=== PATIENT | male | born 1955 | race Caucasian/White ===

== ENCOUNTER 2020-09-29 13:00 | Outpatient (RCR) | payer OTHER, SELFPAY ==
[2020-09-22 10:29] VITALS: BP 145/65; PULSE 91; RESP 16; TEMP 36.3; BMI 29.3
[2020-09-22 12:06] VITALS: BP 145/68
--- NOTE | 2020-09-22 22:28 | PCM.WC.HP ---
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 Status: Chronic Code(s): L97.513 - Non-pressure chronic ulcer of other part of right foot with necrosis of muscle (2) Other specified peripheral vascular diseases Status: Suspected Code(s): I73.89 - Other specified peripheral vascular diseases (3) Tobacco abuse Status: Acute Code(s): Z72.0 - Tobacco use (4) Hallux valgus (acquired), right foot Status: Chronic Code(s): M20.11 - Hallux valgus (acquired), right foot (5) Type 2 diabetes mellitus with diabetic polyneuropathy Status: Chronic Code(s): E11.42 - Type 2 diabetes mellitus with diabetic polyneuropathy (6) Malnutrition Status: Chronic Code(s): E46 - Unspecified protein-calorie malnutrition History of Present Illness Date of Service: 09/22/20 Chief Complaint: Right foot ulcer History of Wound: This 63-year-old male was seen in the clinic with his family member for a 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 He was initially treated with Dr. Kenyon at [facility] who performed a surgical debridement. He was referred to the wound healing center for ongoing wound care and potential graft consideration. He denies odor and relates there is no redness. He relates he is on antibiotics had x-rays performed and he is not sure if he was evaluated by vascular. He denies recent trauma. He has been changing the dressing. He continues to smoke up to 2 packs of cigarettes per day. He is wearing a surgical shoe. 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 (Chronic) Hallux valgus (acquired), right foot (Chronic) Type 2 diabetes mellitus with diabetic polyneuropathy (Chronic) Malnutrition (Chronic) Allergies/Adverse Reactions: Allergies No Known Allergies Allergy (Verified 09/22/20 11:02) Home Medications: Ambulatory Orders Medication Instructions Recorded Doxycycline 100 mg PO BID 09/22/20 Levofloxacin [Levaquin] 500 mg PO DAILY 09/22/20 Smoking Status: Current every day smoker Review of Systems Constitutional: Denies: Chills, Fever Cardiovascular: Denies: Chest Pain, Claudication Respiratory: Denies: Cough, Shortness of Breath Gastrointestinal: Denies: Diarrhea, Nausea, Vomiting Musculoskeletal: Reports: Foot Pain - Occasional Skin: Reports: Skin Changes, Wounds Neurological: Reports: Numbness Hematologic/ Lymphatic: Denies: Hx of blood clot - Physical Exam Vital Signs Temp Pulse Resp BP 97.3 F L 91 16 145/68 H 09/22/20 10:29 09/22/20 10:29 09/22/20 10:29 09/22/20 12:06 General: Alert HEENT: Atraumatic Extremities: No cyanosis, Capillary Refill Less than 3 Seconds, No Calf Tenderness - Negative Anirudh and Bell sign bilateral, Diminished Peripheral Pulses - Nonpalpable DP and PT pulses bilateral, Edema, - - Compartments soft without bogginess or fluctuance bilateral lower extremities Skin: Ulcer/ Wound - No purulence, erythema, streaking, odor, necrosis. No exposed bone. The ulcer has granulation tissue and does probe deep to the sesamoid apparatus. Capsular tissue was exposed., - - Adjacent skin is hairless and atrophic Wound Measurements and Assessment WC - Nurse 1 - General Ulcer Measurement Start: 09/22/20 10:29 Freq: Status: Active Protocol: Activity Type Activity Date Activity User E-Sign Co-Sign Detail Recorded Client Recorded Date Recorded By Document 09/22/20 10:29 [facility] [id number] 09/22/20 11:02 [facility] 09/22/20 10:29 Wound Center Nurse 1 [Ulcer Assessment] #1- R MEDIAL FOOT -Combined with other wound No -Current Size (cm) - Length 5 -Current Size (cm) - Width 3.3 -Current Size (cm) - Depth 1.1 -Total Square Cm 16.5 -Date of Last Picture (Recall this 09/22/20 field) -Photo Taken Yes -Epithelialization None Present -Tunneling Yes -Tunneling Position (O'clock) 6 -Tunneling Distance (cm) 2.5 -Undermining/Tunneling No -Circular Undermining No -Exudate Amt Medium -Exudate Type Serosanguineous -Wound Margin Distinct, Outline Attached -Granulation Amt Small (1-33%) -Granulation Quality Red -Slough/Fibrin Yes -Necrosis Amt Large (67-100%) -Necrotic Tissue Type Adherent Slough -Texture (Bety-wound Skin Appearance) Assessed, Localized Edema ,Scarring -Moisture (Bety-wound Skin Appearance Assessed ) -Color (Bety-wound Skin Appearance) Assessed, Erythema -Temperature (Bety-wound Skin No Abnormality Appearance) (Pt Warm) -Tenderness on Palpation (Bety-wound No Skin Appearance) -Ulcer Cleansing SOAPY WATER -Foul Odor after Cleansing No -Anesthetic Used 4% Lidocaine Solution [Edema Assessment] -Right Calf (cm) 38.5 -Right Ankle (cm) 24.1 -Left Calf (cm) 40.3 -Left Ankle (cm) 24.6 WC - Nurse 2 - General Ulcer CM Notes Start: 09/22/20 10:29 Freq: Status: Active Protocol: Activity Type Activity Date Activity User E-Sign Co-Sign Detail Recorded Client Recorded Date Recorded By Document 09/22/20 11:36 [facility] [id number] 09/22/20 11:43 CESAR 09/22/20 11:36 Wound Center Nurse 2 [Procedure/Treatment] #1- R MEDIAL FOOT -Correct Patient Yes -Correct Side, Site, Position Yes -Correct Procedure Yes -Procedure Performed Yes -Type of Procedure Debridement -Clinical Debridement Subcutaneous -Tissue Removed Subcutaneous -Post Debridement (cm) - Length 5.5 -Post Debridement (cm) - Width 3.5 -Post Debridement (cm) - Depth 1.1 -Total Square (Post) (cm) 19.25 -Area of Debridement (cm) - Length 5.5 -Area of Debridement (cm) - Width 3.5 -Total Square (Area) (cm) 19.25 -Tunneling No -Undermining/Tunneling No -Circular Undermining No -Wound/Ulcer Outcome Not Healed -Ulcer Cleansing Rinsed/ Irrigated with Saline -Foul Odor after Cleansing No -Bioengineered Tissue No -Bleeding Controlled with Pressure -Offloading Yes -Type of Offloading Surgical Shoe -Debridement - Subq, 1st 20sq cm Yes [See Physician Procedure note for Specifics] Pain Scale: 0-10 Numeric [Pain] -Is Patient Pain Free? Yes - Nurse 3 - General Ulcer D/C NN Start: 09/22/20 10:29 Freq: Status: Active Protocol: Activity Type Activity Date Activity User E-Sign Co-Sign Detail Recorded Client Recorded Date Recorded By Document 09/22/20 12:06 RB [id number] 09/22/20 12:07 RB 09/22/20 12:06 Wound Care Nurse 3 [Wound Dressing] #1- R MEDIAL FOOT -Other Dressing MOISTENED SALINE GAUZE -Primary Dressing Covered/Secured Dry Gauze,Dry with Gauze & Roll Gauze,Secured with Tape [Post Procedure Tolerated] -Treatment Response Procedure Tolerated Well Vital Signs [Blood Pressure] -Blood Pressure (90/60-120/80) 145/68 H -Blood Pressure Mean (mm Hg) 93 -Source Monitor -Position Semi-Fowlers -Blood Pressure Location Left Arm Pain Scale: 0-10 Numeric [Pain] -Is Patient Pain Free? Yes Teaching: Wound Center [Wound Center Education] (Items with an * have Printed Materials Available- Please identify what is given to patient under the Teaching materials given to patient and caregiver Section. Dressing Your Wound -Person Taught Patient -Teaching Method Discussion, Demonstration -Response to teaching Verbalize understanding WC - Visit Discharge [Visit Discharge Information] -Discharge Condition Stable -Ambulatory Status Ambulatory -Transportation Private Auto -Medication Reconcilliation completed No & provided to patient/care provider -Clinical Summary of Care Provided Yes Musculoskeletal: Muscle Wasting, Tenderness - Active range of motion digits. Mild tenderness with ulcerative lesion. Mild lateral hallux deviation consistent with a bunion deformity Neurological: - - Lack of full epicritic sensation light touch is consistent with neuropathy status Debridement Note Post-Debridement Measurements/Treatment WC - Nurse 2 - General Ulcer CM Notes Start: 09/22/20 10:29 Freq: Status: Active Protocol: Activity Type Activity Date Activity User E-Sign Co-Sign Detail Recorded Client Recorded Date Recorded By Document 09/22/20 11:36 [facility] [id number] 09/22/20 11:43 CESAR 09/22/20 11:36 Wound Center Nurse 2 #1- R MEDIAL FOOT -Correct Patient Yes -Correct Side, Site, Position Yes -Correct Procedure Yes -Procedure Performed Yes -Type of Procedure Debridement -Clinical Debridement Subcutaneous -Tissue Removed Subcutaneous -Post Debridement (cm) - Length 5.5 -Post Debridement (cm) - Width 3.5 -Post Debridement (cm) - Depth 1.1 -Total Square (Post) (cm) 19.25 -Area of Debridement (cm) - Length 5.5 -Area of Debridement (cm) - Width 3.5 -Total Square (Area) (cm) 19.25 -Tunneling No -Undermining/Tunneling No -Circular Undermining No -Wound/Ulcer Outcome Not Healed -Ulcer Cleansing Rinsed/ Irrigated with Saline -Foul Odor after Cleansing No -Bioengineered Tissue No -Bleeding Controlled with Pressure -Offloading Yes -Type of Offloading Surgical Shoe -Debridement - Subq, 1st 20sq cm Yes Pain Scale: 0-10 Numeric Is Patient Pain Free? Yes - Nurse 3 - General Ulcer D/C NN Start: 09/22/20 10:29 Freq: Status: Active Protocol: Activity Type Activity Date Activity User E-Sign Co-Sign Detail Recorded Client Recorded Date Recorded By Document 09/22/20 12:06 [id number] 09/22/20 12:07 RB 09/22/20 12:06 Wound Care Nurse 3 #1- R MEDIAL FOOT -Other Dressing MOISTENED SALINE GAUZE -Primary Dressing Covered/Secured with Dry Gauze,Dry Gauze & Roll Gauze,Secured with Tape Treatment Response Procedure Tolerated Well Vital Signs Blood Pressure (90/60-120/80) 145/68 H Blood Pressure Mean (mm Hg) 93 Source Monitor Position Semi-Fowlers Blood Pressure Location Left Arm Pain Scale: 0-10 Numeric Is Patient Pain Free? Yes Teaching: Wound Center Dressing Your Wound -Person Taught Patient -Teaching Method Discussion, Demonstration -Response to teaching Verbalize understanding WC - Visit Discharge Discharge Condition Stable Ambulatory Status Ambulatory Transportation Private Auto Medication Reconcilliation completed & No provided to patient/care provider Clinical Summary of Care Provided Yes Wound debrided: medial forefoot Laterality: Right Wound Grade/Stage: grade 2 Type of Debridement: Excisional debridement Anesthesia Used: 5% Lidocaine Gel Depth: in the subcutaneous layer Percentage of wound debrided: 100 Instrument Used: #15 blade Tissue Removed: fibrous, devitalized subcutaneous, biofilm, slough Severity: Fat Layer Exposed Amount of bleeding with debridement: Mild Bleeding Controlled with: Pressure Patient tolerated procedure well Assessment/Plan Active Problems 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 Infection resolving. Strong smoking habits. Peripheral vascular disease concern. Malnutrition suspected Plan: I reviewed and discussed his case. Debridement was performed as noted in the clinical panel. I will request many records from [facility]. I would like to obtain the following diagnostic data for ordered if I cannot receive this information from the outside facility: Foot x-ray or other advanced imaging, current antibiotic usage, noninvasive vascular disks studies or other intervention, prior medical and surgical management. To continue offloading with surgical shoe that he presents with today by heel weightbearing. I also added a foam offloading pad to reduce friction and pressure at this site. To optimize nutrition with Jordan supplementations. A prescription was provided. To clean ulcer daily with soap and water and to perform a wet-to-dry dressing with Dakin's. A prescription was provided. To discontinue smoking. This is imperative for healing opportunities. Is noted he is not a diabetic. I would like to request his medical records from his primary care physician to better understand his other medical management opportunities. Progress of the ulcer debridement was reviewed as was the components of a comprehensive wound healing plan. Answered all his questions. He will return to clinic in 1 week or call sooner if he has any questions or concerns. I would also like to consider advancement healing product such as epicord or epifix. Indications, benefits, anticipated healing time and management reviewed. This would be considered if the wound is open for 1 month in duration and after insurance prior authorization is completed.
[2020-09-29 13:01] VITALS: BP 147/72; PULSE 94; RESP 20; TEMP 36.3; BMI 29.3
--- NOTE | 2020-09-29 14:31 | PCM.WC.PN ---
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 Status: Chronic Code(s): L97.513 - Non-pressure chronic ulcer of other part of right foot with necrosis of muscle (2) Other specified peripheral vascular diseases Status: Suspected Code(s): I73.89 - Other specified peripheral vascular diseases (3) Tobacco abuse Status: Acute Code(s): Z72.0 - Tobacco use (4) Hallux valgus (acquired), right foot Status: Chronic Code(s): M20.11 - Hallux valgus (acquired), right foot (5) Type 2 diabetes mellitus with diabetic polyneuropathy Status: Chronic Code(s): E11.42 - Type 2 diabetes mellitus with diabetic polyneuropathy (6) Malnutrition Status: Chronic Code(s): E46 - Unspecified protein-calorie malnutrition Type of Wound Date of Service: 09/29/20 Chief Complaint: Right foot ulcer History of Wound: This 63-year-old male was seen in the clinic with his family member for a 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 He was initially treated with Dr. Kenyon at [facility] who performed a surgical debridement on 09/06/2020. He was referred to the wound healing center for ongoing wound care and potential graft consideration. He denies odor and relates there is no redness. He relates he is on antibiotics had x-rays performed and he is not sure if he was evaluated by vascular. He does however report he was seen by Dr. Raul Wong several years ago in which he had arterial surgical intervention for traumatic injury. He relates he has stents placed and is advised not to bend his leg too aggressively. He denies claudication he also denies recent noninvasive vascular studies. He is wearing a surgical shoe. He reduce smoking to about 1 pack/day this past week. He has been changing the dressing with Dakin wet-to-dry as advised. Progress of Wound: Improving - Physical Exam Vital Signs Temp Pulse Resp BP 97.4 F L 94 20 H 147/72 H 09/29/20 13:01 09/29/20 13:01 09/29/20 13:01 09/29/20 13:01 General: Alert, Oriented x3, Cooperative, No apparent distress HEENT: Atraumatic Extremities: No cyanosis, Capillary Refill Less than 3 Seconds, No Calf Tenderness, Diminished Peripheral Pulses, Edema Skin: Ulcer/ Wound - No purulence, erythema, streaking, odor, necrosis or infection. Exposed capsule tissue noted to medial first metatarsal head. Improvement in granulation tissue. The adjacent skin is hairless and atrophic. Wound Measurements and Assessment - Nurse 1 - General Ulcer Measurement Start: 09/22/20 10:29 Freq: Status: Active Protocol: Activity Type Activity Date Activity User E-Sign Co-Sign Detail Recorded Client Recorded Date Recorded By Document 09/29/20 13:01 [facility] [id number] 09/29/20 13:16 DL 09/29/20 13:01 Wound Center Nurse 1 [Ulcer Assessment] #1- R MEDIAL FOOT -Current Size (cm) - Length 4.5 -Current Size (cm) - Width 3.1 -Current Size (cm) - Depth 0.6 -Total Square Cm 13.95 -Photo Taken No -Exudate Amt Small -Exudate Type Serosanguineous -Wound Margin Thickened & Rolled Under -Granulation Amt Medium (34-66%) -Granulation Quality Red -Necrosis Amt Medium (34-66%) -Necrotic Tissue Type Adherent Slough -Structure Exposed N/A -Texture (Bety-wound Skin Appearance) Localized Edema ,Scarring -Moisture (Bety-wound Skin Appearance No Abnormality ) -Color (Bety-wound Skin Appearance) Erythema -Temperature (Bety-wound Skin No Abnormality Appearance) (Pt Warm) -Tenderness on Palpation (Bety-wound No Skin Appearance) -Ulcer Cleansing Wound Cleanser -Foul Odor after Cleansing No -Anesthetic Used 4% Lidocaine Solution - Nurse 2 - General Ulcer CM Notes Start: 09/22/20 10:29 Freq: Status: Active Protocol: Activity Type Activity Date Activity User E-Sign Co-Sign Detail Recorded Client Recorded Date Recorded By Document 09/29/20 13:23 [facility] [id number] 09/29/20 13:30 CESAR 09/29/20 13:23 Wound Center Nurse 2 [Procedure/Treatment] -Time 13:24 -Correct Patient Yes -Correct Side, Site, Position Yes -Correct Procedure Yes -Procedure Performed Yes -Type of Procedure Debridement -Clinical Debridement Subcutaneous -Tissue Removed Subcutaneous -Post Debridement (cm) - Length 4.5 -Post Debridement (cm) - Width 3.2 -Post Debridement (cm) - Depth 0.6 -Total Square (Post) (cm) 14.40 -Area of Debridement (cm) - Length 4.5 -Area of Debridement (cm) - Width 3.2 -Total Square (Area) (cm) 14.40 -Tunneling No -Undermining/Tunneling No -Circular Undermining No -Wound/Ulcer Outcome Not Healed -Ulcer Cleansing Rinsed/ Irrigated with Saline -Foul Odor after Cleansing No -Bioengineered Tissue No -Bleeding Controlled with Pressure -Offloading Yes -Type of Offloading Surgical Shoe -Treatment Response Procedure Tolerated Well -Debridement - Subq, 1st 20sq cm Yes [See Physician Procedure note for Specifics] Pain Scale: 0-10 Numeric [Pain] -Is Patient Pain Free? Yes - Nurse 3 - General Ulcer D/C NN Start: 09/22/20 10:29 Freq: Status: Active Protocol: Activity Type Activity Date Activity User E-Sign Co-Sign Detail Recorded Client Recorded Date Recorded By Document 09/29/20 13:47 [facility] [id number] 09/29/20 13:47 [facility] 09/29/20 13:47 Wound Care Nurse 3 [Wound Dressing] #1- R MEDIAL FOOT -Ulcer Cleansing Rinsed/ Irrigated with Saline -Foul Odor after Cleansing No -Primary Dressing Applied Other -Other Dressing moist to dry drsg -Primary Dressing Covered/Secured Dry Gauze & with Roll Gauze, Secured with Tape [Post Procedure Tolerated] -Treatment Response Procedure Tolerated Well Pain Scale: 0-10 Numeric [Pain] -Is Patient Pain Free? Yes - Visit Discharge [Visit Discharge Information] -Discharge Condition Stable -Ambulatory Status Ambulatory -Transportation Private Auto -Accompanied by niece [Facility Notification] -Facility Type Home Health Musculoskeletal: No Tenderness to Palpation of Joints or Extremities, Muscle Wasting, - - Compartments soft Neurological: - - Lack of full epicritic sensation light touch is consistent with neuropathy status Psych/Mental Status: Normal Affect, Appropriate Debridement Note Post-Debridement Measurements/Treatment - Nurse 2 - General Ulcer CM Notes Start: 09/22/20 10:29 Freq: Status: Active Protocol: Activity Type Activity Date Activity User E-Sign Co-Sign Detail Recorded Client Recorded Date Recorded By Document 09/22/20 11:36 [id number] 09/22/20 11:43 Document 09/29/20 13:23 [id number] 09/29/20 13:30 09/22/20 09/29/20 11:36 13:23 Wound Center Nurse 2 #1- R MEDIAL FOOT -Time 13:24 -Correct Patient Yes Yes -Correct Side, Site, Position Yes Yes -Correct Procedure Yes Yes -Procedure Performed Yes Yes -Type of Procedure Debridement Debridement -Clinical Debridement Subcutaneous Subcutaneous -Tissue Removed Subcutaneous Subcutaneous -Post Debridement (cm) - Length 5.5 4.5 -Post Debridement (cm) - Width 3.5 3.2 -Post Debridement (cm) - Depth 1.1 0.6 -Total Square (Post) (cm) 19.25 14.40 -Area of Debridement (cm) - Length 5.5 4.5 -Area of Debridement (cm) - Width 3.5 3.2 -Total Square (Area) (cm) 19.25 14.40 -Tunneling No No -Undermining/Tunneling No No -Circular Undermining No No -Wound/Ulcer Outcome Not Healed Not Healed -Ulcer Cleansing Rinsed/ Rinsed/ Irrigated with Irrigated with Saline Saline -Foul Odor after Cleansing No No -Bioengineered Tissue No No -Bleeding Controlled with Pressure Pressure -Offloading Yes Yes -Type of Offloading Surgical Shoe Surgical Shoe -Treatment Response Procedure Tolerated Well -Debridement - Subq, 1st 20sq cm Yes Yes Pain Scale: 0-10 Numeric Is Patient Pain Free? Yes Yes - Nurse 3 - General Ulcer D/C NN Start: 09/22/20 10:29 Freq: Status: Active Protocol: Activity Type Activity Date Activity User E-Sign Co-Sign Detail Recorded Client Recorded Date Recorded By Document 09/22/20 12:06 [id number] 09/22/20 12:07 RB Document 09/29/20 13:47 [facility] [id number] 09/29/20 13:47 [facility] 09/22/20 09/29/20 12:06 13:47 Wound Care Nurse 3 #1- R MEDIAL FOOT -Ulcer Cleansing Rinsed/ Irrigated with Saline -Foul Odor after Cleansing No -Primary Dressing Applied Other -Other Dressing MOISTENED moist to dry SALINE GAUZE drsg -Primary Dressing Covered/Secured with Dry Gauze,Dry Dry Gauze & Gauze & Roll Roll Gauze, Gauze,Secured Secured with with Tape Tape Treatment Response Procedure Procedure Tolerated Well Tolerated Well Vital Signs Blood Pressure (90/60-120/80) 145/68 H Blood Pressure Mean (mm Hg) 93 Source Monitor Position Semi-Fowlers Blood Pressure Location Left Arm Pain Scale: 0-10 Numeric Is Patient Pain Free? Yes Yes Teaching: Wound Center Dressing Your Wound -Person Taught Patient -Teaching Method Discussion, Demonstration -Response to teaching Verbalize understanding WC - Visit Discharge Discharge Condition Stable Stable Ambulatory Status Ambulatory Ambulatory Transportation Private Auto Private Auto Accompanied by niece Medication Reconcilliation completed & No provided to patient/care provider Clinical Summary of Care Provided Yes Facility Type Home Health Wound debrided: plantar medial forefoot Laterality: Right Wound Grade/Stage: grade 2 Type of Debridement: Excisional debridement Anesthesia Used: 5% Lidocaine Gel Depth: in the subcutaneous layer Percentage of wound debrided: 100 Instrument Used: #15 blade Tissue Removed: fibrous, devitalized subcutaneous, biofilm, slough Severity: Fat Layer Exposed Amount of bleeding with debridement: Mild Bleeding Controlled with: Pressure Patient tolerated procedure well Assessment/Plan Active Problems 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 Infection resolving. Strong smoking habits. Peripheral vascular disease concern. Malnutrition suspected Plan: I reviewed and discussed his case. Debridement was performed as noted in the clinical panel. I will request many records from [facility]. These were received and reviewed including admission note, operation report, and microbiology reports. It did not appear he had updated noninvasive vascular studies and this is ordered today. 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 I will also continue to try to obtain x-rays if these were done and any documentation of infection management or plan. The patient was reassured local signs of infection have resolved to the foot today. To continue offloading with surgical shoe. He has an offloading felt pad applied to the strap and additional dual density Plastizote liners were also applied to take pressure off of the forefoot. To heel weight-bear and to reduce walking activity. To optimize nutrition with Jordan supplementations. A prescription was provided. To clean ulcer daily with soap and water and to perform a wet-to-dry dressing with Dakin's. A prescription was provided. To discontinue smoking. This is imperative for healing opportunities. Is noted he is not a diabetic. Progress of the ulcer debridement was reviewed as was the components of a comprehensive wound healing plan. Answered all his questions. He will return to clinic in 1 week or call sooner if he has any questions or concerns. I would also like to consider advancement healing product such as epicord or epifix. Indications, benefits, anticipated healing time and management reviewed. This would be considered if the wound is open for 1 month in duration and after insurance prior authorization is completed.
== END 2020-09-30 23:59 ==
LOC: WC 13:00
PROVIDERS: PCP Preventive Medicine Occupational Medicine; Referring Provider Podiatrist Foot & Ankle Surgery; Visit Provider Nurse Practitioner
DX: E11.621 Type 2 diabetes mellitus with foot ulcer (principal); L97.513 Non-pressure chronic ulcer of other part of right foot with necrosis of muscle; E11.42 Type 2 diabetes mellitus with diabetic polyneuropathy; M20.11 Hallux valgus (acquired), right foot; F17.210 Nicotine dependence, cigarettes, uncomplicated
CPT/HCPCS: 11042; 99213; G0463

== ENCOUNTER → 2020-10-11 14:38 | Outpatient (CLI) | payer OTHER, SELFPAY ==
[2020-10-06 13:46] VITALS: BMI 29.3
--- NOTE | 2020-10-11 14:58 | RAD_ITS ---
STUDY: X-RAY - RIGHT FOOT CLINICAL: Male, 64 years old. right foot infection, ball of foot -- surgery on it 09-06-20 -- follow up TECHNIQUE: 3 view(s) of the foot. COMPARISON: None. FINDINGS: Normal talus, calcaneus, and tarsal bones. Small plantar posterior calcaneal enthesophytes. Calcifications of the proximal plantar fascia suggestive of plantar fasciitis. Normal visualized subtalar, talonavicular, calcaneocuboid, tarsal and tarsometatarsal articulations. Normal metatarsi. Normal metatarsophalangeal joint of the great toe. Normal tibial and fibular sesamoid bones. Normal interphalangeal joint of the great toe. Normal phalanges of the great toe. Normal second through fifth metatarsophalangeal joints. Normal interphalangeal joints and phalanges of the lesser toes. The soft tissue structures are unremarkable. RAD/Foot min 3 Views IMPRESSION: No radiographic evidence of osteomyelitis. Electronically Signed: Mario Romero MD at 15:40 EST Tel , Service support ,
[2020-10-11 16:46] LABS: Absolute Lymphocyte Count 1.52 X10^3/uL (0.83-4.51); Absolute Neutrophil Count 2.4 X10^3/uL (2.0-7.7); Basophil# 0.04 X10^3/uL; Basophil% 0.8 % (0-1); Eosinophil# 0.13 X10^3/uL; Eosinophils% 2.5 % (0-5); Hematocrit 52.4 % (40-54); Hemoglobin 17.2 g/dL (13.0-16.5); Lymphocyte # 1.52 X10^3/ul (4.0); Lymphocyte % 29.8 % (19-41); Mean Corp Hgb Conc 32.8 g/dL (32-36); Mean Corpuscular Hgb 30.7 pg (27.0-32.0); Mean Corpuscular Volume 93.4 fL (80-94); Mean Platelet Vol. 10.6 fl (6.2-12.0); Monocyte# 0.98 X10^3/uL; Monocyte% 19.2 % (0-10); NRBC Flagged by Analyzer 0 % (0-5); Neutrophil # 2.39 X10^3/uL (2.7-7.7); Neutrophil % 46.9 % (47-70); Platelet Count 161 K/mm3 (150-450); RBC Distribution Width CV 12.9 % (11.6-14.6); RBC Distribution Width SD 44.4 fl (35.1-43.9); Red Blood Count 5.61 M/mm3 (4.6-6.2); White Blood Count 5.1 K/mm3 (4.4-11.0)
[2020-10-11 17:02] LABS: Hemoglobin A1c 8.3 % (3.8-5.6)
[2020-10-11 17:12] LABS: ALB/GLOB Ratio 0.7 RATIO (0.9-2.4); AST(SGOT) 25 U/L (15-37); Alanine Aminotransfer ALT/SGPT 27 U/L (16-61); Alkaline Phosphatase 155 U/L (45-117); Anion Gap 6 (5-15); BUN 15 mg/dL (7-18); BUN/Creat Ratio 15.5 RATIO (10-20); Calcium,Total 8.8 mg/dL (8.5-10.1); Chloride 99 mmol/L (98-107); Creatinine, Serum 0.97 mg/dL (0.70-1.30); EST Glomerular Filtration Rate 83 mL/min (>60); Est Glom Filt Rate - Afr Amer 100 mL/min (>60); Globulin 4.2 g/dL (2.2-4.2); Glucose 266 mg/dL (74-106); Potassium 4.2 mmol/L (3.5-5.1); Protein, Total 7.2 g/dL (6.4-8.2); Sodium Level 135 mmol/L (136-145)
[2020-10-11 17:35] LABS: Erythrocyte Sedimentation Rate 14 mm/hr (0-20)
== END ==
PROVIDERS: PCP Preventive Medicine Occupational Medicine; Referring Provider Podiatrist; Visit Provider Podiatrist
DX: L03.115 Cellulitis of right lower limb (principal)
CPT/HCPCS: 36415; 73630; 80053; 83036; 85025; 85652; 86140

== ENCOUNTER 2020-10-27 10:30 | Outpatient (RCR) | payer OTHER, SELFPAY ==
[2020-10-01 00:41] VITALS: BP 147/72; PULSE 94; RESP 20; TEMP 36.3
[2020-10-06 13:46] VITALS: BP 159/80; PULSE 86; TEMP 35.8; BMI 29.3
--- NOTE | 2020-10-06 15:02 | PN.PCM_ITS ---
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 Status: Chronic Code(s): L97.513 - Non-pressure chronic ulcer of other part of right foot with necrosis of muscle (2) Tobacco abuse Status: Acute Code(s): Z72.0 - Tobacco use (3) Hallux valgus (acquired), right foot Status: Chronic Code(s): M20.11 - Hallux valgus (acquired), right foot (4) Type 2 diabetes mellitus with diabetic polyneuropathy Status: Chronic Code(s): E11.42 - Type 2 diabetes mellitus with diabetic polyneuropathy (5) Malnutrition Status: Chronic Code(s): E46 - Unspecified protein-calorie malnutrition (6) Cellulitis of right lower limb Status: Resolved Code(s): L03.115 - Cellulitis of right lower limb (7) Other specified peripheral vascular diseases Status: Chronic Code(s): I73.89 - Other specified peripheral vascular diseases Type of Wound Date of Service: 10/06/20 Chief Complaint: Right foot ulcer History of Wound: This 64-year-old male was seen in the clinic with his family member for a 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 He was initially treated with Dr. Kenyon at [facility] who performed a surgical debridement on 09/06/2020. He was referred to the wound healing center for ongoing wound care and potential graft consideration. He denies odor and relates there is no redness. He relates he is on antibiotics had x-rays performed and he is not sure if he was evaluated by vascular. He does however report he was seen by Dr. Raul Wong several years ago in which he had arterial surgical intervention for traumatic injury. He relates he has stents placed and is advised not to bend his leg too aggressively. He denies claudication he also denies recent noninvasive vascular studies. He is wearing a surgical shoe. He reduce smoking to about 1 pack/day this past week. He has been changing the dressing with Dakin wet-to-dry as advised. Progress of Wound: Improving - Physical Exam Vital Signs Temp Pulse Resp BP 96.5 F L 86 20 H 159/80 H 10/06/20 13:46 10/06/20 13:46 10/01/20 00:41 10/06/20 13:46 General: Alert, Oriented x3, Cooperative, No apparent distress Extremities: No cyanosis, Capillary Refill Less than 3 Seconds, No Calf Tenderness, Diminished Peripheral Pulses, Edema Skin: Ulcer/ Wound - No purulence on expression. No erythema, no streaking, no necrosis. The adjacent skin is hairless and atrophic. There is continued deep probing of over a couple of centimeters to the 8 o'clock position. Exposed capsule of the first metatarsal head is noted medially which is close to bone Wound Measurements and Assessment WC - Nurse 1 - General Ulcer Measurement Start: 10/06/20 13:35 Freq: Status: Active Protocol: Activity Type Activity Date Activity User E-Sign Co-Sign Detail Recorded Client Recorded Date Recorded By Document 10/06/20 13:46 MT [id number] 10/06/20 13:51 MT 10/06/20 13:46 Wound Center Nurse 1 [Ulcer Assessment] #1- R MEDIAL FOOT -Current Size (cm) - Length 3.5 -Current Size (cm) - Width 5.2 -Current Size (cm) - Depth 0.2 -Total Square Cm 18.20 -Exudate Amt None Present -Wound Margin Distinct, Outline Attached -Granulation Amt Large (67-100%) -Granulation Quality Red -Necrosis Amt Small (1-33%) -Necrotic Tissue Type Adherent Slough -Texture (Bety-wound Skin Appearance) Assessed,Callus -Moisture (Bety-wound Skin Appearance Assessed,Dry/ ) Scaly -Color (Bety-wound Skin Appearance) Assessed, Hemosiderin Staining -Temperature (Bety-wound Skin No Abnormality Appearance) (Pt Warm) -Tenderness on Palpation (Bety-wound No Skin Appearance) -Ulcer Cleansing Rinsed/ Irrigated with Saline -Foul Odor after Cleansing No -Anesthetic Used 4% Lidocaine Solution WC - Nurse 3 - General Ulcer D/C NN Start: 10/06/20 13:35 Freq: Status: Active Protocol: Activity Type Activity Date Activity User E-Sign Co-Sign Detail Recorded Client Recorded Date Recorded By Document 10/06/20 14:24 KR [id number] 10/06/20 14:25 KR 10/06/20 14:24 Wound Care Nurse 3 [Wound Dressing] -Ulcer Cleansing Rinsed/ Irrigated with Saline -Foul Odor after Cleansing No -Primary Dressing Covered/Secured Dry Gauze & with Roll Gauze, Secured with Tape Pain Scale: 0-10 Numeric [Pain] -Is Patient Pain Free? Yes WC - Visit Discharge [Visit Discharge Information] -Discharge Condition Stable -Ambulatory Status Ambulatory -Transportation Private Auto Musculoskeletal: Muscle Wasting, - - Lateral hallux deviation with prominent first metatarsal head. Compartments are soft. No bogginess or fluctuance on palpation Neurological: - - Lack of normal epicritic sensation is consistent with a neuropathy status. Debridement Note Post-Debridement Measurements/Treatment WC - Nurse 3 - General Ulcer D/C NN Start: 10/06/20 13:35 Freq: Status: Active Protocol: Activity Type Activity Date Activity User E-Sign Co-Sign Detail Recorded Client Recorded Date Recorded By Document 10/06/20 14:24 KOJO [id number] 10/06/20 14:25 KOJO 10/06/20 14:24 Wound Care Nurse 3 #1- R MEDIAL FOOT -Ulcer Cleansing Rinsed/ Irrigated with Saline -Foul Odor after Cleansing No -Primary Dressing Covered/Secured with Dry Gauze & Roll Gauze, Secured with Tape Pain Scale: 0-10 Numeric Is Patient Pain Free? Yes WC - Visit Discharge Discharge Condition Stable Ambulatory Status Ambulatory Transportation Private Auto Wound debrided: plantar medial forefoot Laterality: Right Wound Grade/Stage: grade 2 Type of Debridement: Excisional debridement Anesthesia Used: 5% Lidocaine Gel Depth: in the subcutaneous layer Percentage of wound debrided: 100 Instrument Used: 3mm curette, #15 blade Tissue Removed: fibrous, devitalized subcutaneous, biofilm, slough Severity: Fat Layer Exposed Amount of bleeding with debridement: Mild Bleeding Controlled with: Pressure Patient tolerated procedure well Assessment/Plan Active Problems 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 Diabetes with neuropathy. Infection resolving. Strong smoking habits. Peripheral vascular disease concern. Malnutrition suspected Plan: I reviewed and discussed his case. Debridement was performed as noted in the clinical panel. I will request many records from [facility]. These were received and reviewed including admission note, operation report, an d microbiology reports. It did not appear he had updated noninvasive vascular studies and was ordered previously. His microbiology report was reviewed and this demonstrates Group D enterococcus, gram-negative rods and gram positive rods. I have performed an additional medical record review at [facility] and there does not appear to be any imaging studies on file. An x-ray of the foot was ordered. He understands he may require MRI evaluation also. The patient was reassured local signs of infection have resolved to the foot today. It is noted he completed a course of antibiotics under the management of Dr. Kenyon. I also recommend updated labs to monitor his continued medical status and infection markers. To continue offloading with surgical shoe. He has an offloading felt pad applied to the strap and additional dual density Plastizote liners were also applied to take pressure off of the forefoot. To heel weight-bear and to reduce walking activity. To optimize nutrition with Jordan supplementations. A prescription was provided. To clean ulcer daily with soap and water and to perform a wet-to-dry dressing with Dakin's. He was advised to specifically perform deep packing into the 8 o'clock position. To discontinue smoking. This is imperative for healing opportunities. It is noted he is not a diabetic. Progress of the ulcer debridement was reviewed as was the components of a comprehensive wound healing plan. I answered all his questions. He will return to clinic in 1 week or call sooner if he has any questions or concerns. I would also like to consider advancement healing product such as epicord or epifix. Indications, benefits, anticipated healing time and management reviewed. This would be considered if the wound is open for 1 month in duration, after insurance prior authorization is completed, and after confirmed sinus tract is resolving. Note: [employer] speech recognition nitric acid concentrator operator software was used to create portions of this document. Sound-alike and misspelled words, as well as other nitric acid concentrator operator errors may be contained in the documentation. The medical decision making level is moderate based on data including independent interpretation of a test performed by another qualified health caretaker grounds. The medical decision making level iss moderate based on data including the discussion of management or test interpretation with another qualified health caretaker grounds or appropriate source.
--- NOTE | 2020-10-13 13:03 | ART_ITS ---
Reason For Study: PVD, Foot ulcer Procedure A bilateral lower extremity continuous wave Doppler with analog waveform analysis,segmental pressures,and ankle brachial indexes without exercise. Left Segmental Pressures Left brachial= 129mmHg. Left thigh = 174mmHg. Left calf = 147mmHg. Left posterior tibial artery = 141mmHg. Left dorsalis pedis artery = 119mmHg. Right Segmental Pressures Right brachial= 138mmHg. Indices No Rt sided pressures taken due to stents (Rt Katie ad Rt ankle per patient). The left ankle brachial index by the posterior tibial artery is 1.02. The left ankle brachial index by the dorsalis pedis is 0.86. Interpretation Summary Monophasic Doppler waveforms are noted at ankle level on the right. Biphasic and triphasic Doppler waveforms are noted at ankle level on the left. Pulse-volume recording waveform amplitudes are diminished at ankle and digital level bilaterally. The resting right ankle-brachial index and digital-brachial index were not determined due to concerns regarding pressure cuffs at the sites of prior stent placement. The resting left ankle-brachial index and digital brachial index are normal. Arterial flow appears relatively normal at all levels on the left. The right lower extremity arterial status was not fully evaluated due to the suspected presence of arterial stents. However, monophasic Doppler waveforms at digital level on the right suggests [id number] arterial occlusive disease in the right lower extremity. Clinical correlation is advised. Ordering Physician: Jeane Nino Referring Physician: Paulie Kenyon Performed By: Lisa Duarte RDCS/KEVIN
[2020-10-13 14:06] VITALS: BP 159/77; PULSE 84; RESP 18; TEMP 36.6; BMI 29.3
--- NOTE | 2020-10-13 14:36 | PCM.WC.PN ---
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 Status: Chronic Code(s): L97.513 - Non-pressure chronic ulcer of other part of right foot with necrosis of muscle (2) Tobacco abuse Status: Acute Code(s): Z72.0 - Tobacco use (3) Hallux valgus (acquired), right foot Status: Chronic Code(s): M20.11 - Hallux valgus (acquired), right foot (4) Type 2 diabetes mellitus with diabetic polyneuropathy Status: Chronic Code(s): E11.42 - Type 2 diabetes mellitus with diabetic polyneuropathy (5) Malnutrition Status: Chronic Code(s): E46 - Unspecified protein-calorie malnutrition (6) Other specified peripheral vascular diseases Status: Chronic Code(s): I73.89 - Other specified peripheral vascular diseases Type of Wound Date of Service: 10/13/20 Chief Complaint: Right foot ulcer History of Wound: This 64-year-old male was seen in the clinic with his family member for a 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 He was initially treated with Dr. Kenyon at [facility] who performed a surgical debridement on 09/06/2020. He was referred to the wound healing center for ongoing wound care and potential graft consideration. He denies odor and relates there is no redness. He relates he is on antibiotics had x-rays performed and he is not sure if he was evaluated by vascular. He does however report he was seen by Dr. Raul Wong several years ago in which he had arterial surgical intervention for traumatic injury. He relates he has stents placed and is advised not to bend his leg too aggressively. He denies claudication he also denies recent noninvasive vascular studies. He is wearing a surgical shoe. He reduce smoking to about 1 pack/day this past week. He has been changing the dressing with Dakin wet-to-dry as advised. He had many of his diagnostic test completed this past week including labs, noninvasive vascular study, and foot x-ray. He also complains of dry foot and leg skin in which his [id number] lotion is not providing adequate improvement. He is also surprised to hear his lab results may indicate that he has diabetes. He relates he does not think he has diabetes. Progress of Wound: Stable - Physical Exam Vital Signs Temp Pulse Resp BP 98 F 84 18 159/77 H 10/13/20 14:06 10/13/20 14:06 10/13/20 14:06 10/13/20 14:06 General: Alert, Oriented x3, Cooperative, No apparent distress HEENT: Atraumatic Extremities: No cyanosis, Capillary Refill Less than 3 Seconds, No Calf Tenderness - Negative Anirudh and Bell sign bilateral, Diminished Peripheral Pulses, Edema Skin: Ulcer/ Wound - There is no purulence or odor on expression. The ulcer bed is granular. There is still some deeper probing at the 8 o'clock position but not directly to bone. There is no directly visualized bone or joint. The adjacent skin is hairless and atrophic. There is no necrosis or eschar Wound Measurements and Assessment WC - Nurse 1 - General Ulcer Measurement Start: 10/06/20 13:35 Freq: Status: Active Protocol: Activity Type Activity Date Activity User E-Sign Co-Sign Detail Recorded Client Recorded Date Recorded By Document 10/13/20 14:06 FAISAL [id number] 10/13/20 14:09 RB 10/13/20 14:06 Wound Center Nurse 1 [Ulcer Assessment] #1- R MEDIAL FOOT -Combined with other wound No -Current Size (cm) - Length 4.5 -Current Size (cm) - Width 3 -Current Size (cm) - Depth 0.8 -Total Square Cm 13.5 -Photo Taken No -Tunneling No -Undermining/Tunneling Yes -Undermining/Tunneling Starts (O' 10 clock) -Undermining/Tunneling Ends (O'clock) 11 -Maximum Distance (cm) 0.8 -Circular Undermining No -Exudate Amt Small -Exudate Type Serous -Wound Margin Flat & Intact -Granulation Amt Medium (34-66%) -Granulation Quality Ballinger -Slough/Fibrin Yes -Necrosis Amt Small (1-33%) -Necrotic Tissue Type Adherent Slough -Structure Exposed N/A -Texture (Bety-wound Skin Appearance) Assessed, Scarring -Moisture (Bety-wound Skin Appearance Assessed ) -Color (Bety-wound Skin Appearance) Assessed -Temperature (Bety-wound Skin No Abnormality Appearance) (Pt Warm) -Tenderness on Palpation (Bety-wound No Skin Appearance) -Ulcer Cleansing Wound Cleanser -Foul Odor after Cleansing No -Anesthetic Used 4% Lidocaine Solution Musculoskeletal: No Tenderness to Palpation of Joints or Extremities, Muscle Wasting, - - Hallux valgus with prominent medial eminence of first metatarsal head Neurological: - - Lack of epicritic sensation light touch is consistent with neuropathy status Psych/Mental Status: Normal Affect, Appropriate Debridement Note Post-Debridement Measurements/Treatment WC - Nurse 2 - General Ulcer CM Notes Start: 10/06/20 13:35 Freq: Status: Active Protocol: Activity Type Activity Date Activity User E-Sign Co-Sign Detail Recorded Client Recorded Date Recorded By Document 10/06/20 16:23 [email or web address] [id number] 10/06/20 16:25 PL 10/06/20 16:23 Wound Center Nurse 2 #1- R MEDIAL FOOT -Time 14:13 -Correct Patient Yes -Correct Side, Site, Position Yes -Correct Procedure Yes -Procedure Performed Yes -Type of Procedure Debridement -Clinical Debridement Subcutaneous -Tissue Removed Subcutaneous -Post Debridement (cm) - Length 3.5 -Post Debridement (cm) - Width 5.2 -Post Debridement (cm) - Depth 0.2 -Total Square (Post) (cm) 18.20 -Area of Debridement (cm) - Length 3.5 -Area of Debridement (cm) - Width 5.2 -Total Square (Area) (cm) 18.20 -Tunneling No -Tunneling Position (O'clock) 8 -Tunneling Distance (cm) 3.6 -Circular Undermining No -Wound/Ulcer Outcome Not Healed -Ulcer Cleansing Rinsed/ Irrigated with Saline -Foul Odor after Cleansing No -Bioengineered Tissue No -Debridement - Subq, 1st 20sq cm Yes Pain Scale: 0-10 Numeric Is Patient Pain Free? Yes - Nurse 3 - General Ulcer D/C NN Start: 10/06/20 13:35 Freq: Status: Active Protocol: Activity Type Activity Date Activity User E-Sign Co-Sign Detail Recorded Client Recorded Date Recorded By Document 10/06/20 14:24 KOJO [id number] 10/06/20 14:25 KR 10/06/20 14:24 Wound Care Nurse 3 #1- R MEDIAL FOOT -Ulcer Cleansing Rinsed/ Irrigated with Saline -Foul Odor after Cleansing No -Primary Dressing Covered/Secured with Dry Gauze & Roll Gauze, Secured with Tape Pain Scale: 0-10 Numeric Is Patient Pain Free? 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 Diabetes with neuropathy. Peripheral vascular disease with prior intervention noted. Strong smoking habits. Peripheral vascular disease concern. Malnutrition suspected Plan: I reviewed and discussed his case. Debridement was performed as noted in the clinical panel. To change daily Dakin wet-to-dry dressing packed into the deep aspect. His medical record was reviewed from [facility]. His microbiology report was reviewed and this demonstrates Group D enterococcus, gram-negative rods and gram positive rods. His most recent noninvasive vascular studies demonstrated monophasic waveforms at the ankle level to the right lower extremity. It is noted the full exam was not performed due to his noted stent placement however moderate to severe occlusive disease is suspected. He is already previously known to vascular specialist, Dr. Wong and I recommended referral to follow-up given his delayed healing, ulcer, continued smoking, and his history of peripheral vascular disease. I have performed an additional medical record review at [facility] and there does not appear to be any imaging studies on file. An x-ray of the foot was ordered. This did not demonstrate any fractures, dislocations, osseous destruction, soft tissue emphysema or foreign body. There is diminished bone density noted in the first metatarsal head and also adjacent rays. 3 nonweightbearing foot x-rays were reviewed. He understands he may require MRI evaluation also if lack of progress is noted or if infection signs develop. The patient was reassured local signs of infection have remained resolved to the foot today. It is noted he completed a course of antibiotics under the management of Dr. Kenyon. I also recommend updated labs to monitor his continued medical status and infection markers. His labs are reviewed with white blood cell count of 5.1, ESR 14, C-reactive protein 17.5. His hemoglobin A1c is also noted at 8.3% which she was advised to follow-up with his primary care physician for diabetes diagnosis and management. To continue offloading with surgical shoe. He has an offloading felt pad applied to the strap and additional dual density Plastizote liners were also applied to take pressure off of the forefoot. To heel weight-bear and to reduce walking activity. To optimize nutrition with Jordan supplementations. A prescription was provided previously. To clean ulcer daily with soap and water and to perform a wet-to-dry dressing with Dakin's. To discontinue smoking. This is imperative for healing opportunities. It is noted he is not a diabetic. I answered all his questions. He will return to clinic in 1 week or call sooner if he has any questions or concerns. I would also like to consider advancement healing product such as epicord or epifix. Indications, benefits, anticipated healing time and management reviewed. Prior authorization will be initiated. He is amendable to proceed forward with this part of his treatment plan. Note: [employer] speech recognition telegraph office manager software was used to create portions of this document. Sound-alike and misspelled words, as well as other telegraph office manager errors may be contained in the documentation. The medical decision making level is moderate based on data including independent interpretation of a test performed by another qualified health transitional care liaison. The medical decision making level iss moderate based on data including the discussion of management or test interpretation with another qualified health transitional care liaison or appropriate source.
[2020-10-13 14:54] VITALS: BP 150/78
[2020-10-20 14:09] VITALS: BP 153/79; PULSE 96; RESP 18; TEMP 36.6; BMI 29.3
--- NOTE | 2020-10-20 15:46 | PN.PCM_ITS ---
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 Status: Chronic Code(s): L97.513 - Non-pressure chronic ulcer of other part of right foot with necrosis of muscle (2) Tobacco abuse Status: Acute Code(s): Z72.0 - Tobacco use (3) Hallux valgus (acquired), right foot Status: Chronic Code(s): M20.11 - Hallux valgus (acquired), right foot (4) Type 2 diabetes mellitus with diabetic polyneuropathy Status: Chronic Code(s): E11.42 - Type 2 diabetes mellitus with diabetic polyneuropathy (5) Malnutrition Status: Chronic Code(s): E46 - Unspecified protein-calorie malnutrition (6) Other specified peripheral vascular diseases Status: Chronic Code(s): I73.89 - Other specified peripheral vascular diseases Type of Wound Date of Service: 10/20/20 Chief Complaint: Right foot ulcer History of Wound: This 65-year-old male was seen in the clinic with his family member for a 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 He was initially treated with Dr. Kenyon at [facility] who performed a surgical debridement on 09/06/2020. He was referred to the wound healing center for ongoing wound care and potential graft consideration. He denies odor and relates there is no redness. He does however report he was seen by Dr. Raul Wong several years ago in which he had arterial surgical intervention for traumatic injury. He relates he has stents placed and is advised not to bend his leg too aggressively. He denies claudication he also denies recent noninvasive vascular studies. He was referred back and has a follow-up appointment next Sunday at 9 AM. He is wearing a surgical shoe. He reduce smoking to about 1 pack/day this past week. He has been changing the dressing with Dakin wet-to-dry as advised with the assistance of home health which will not only be able to come out every other day. He was also informed of his elevated hemoglobin A1c last week and has a follow-up appointment with his primary care physician next Sunday for medical management of his new diagnosis of diabetes. Progress of Wound: Stable - Physical Exam Vital Signs Temp Pulse Resp BP 98 F 96 18 153/79 H 10/20/20 14:09 10/20/20 14:09 10/20/20 14:09 10/20/20 14:09 General: Alert, Oriented x3, Cooperative, No apparent distress Extremities: No cyanosis, Capillary Refill Less than 3 Seconds, No Calf Tenderness, Diminished Peripheral Pulses, Edema Skin: Ulcer/ Wound - No purulence, erythema, streaking, odor, infection. There is still deep probing noted at the 8 o'clock position. There is no redness, eschar, necrosis or exposed bone. The adjacent skin is hairless and atrophic and dry Wound Measurements and Assessment WC - Nurse 1 - General Ulcer Measurement Start: 10/06/20 13:35 Freq: Status: Active Protocol: Activity Type Activity Date Activity User E-Sign Co-Sign Detail Recorded Client Recorded Date Recorded By Document 10/20/20 14:09 RB [id number] 10/20/20 14:11 RB 10/20/20 14:09 Wound Center Nurse 1 [Ulcer Assessment] #1- R MEDIAL FOOT -Combined with other wound No -Current Size (cm) - Length 4 -Current Size (cm) - Width 3.1 -Current Size (cm) - Depth 0.5 -Total Square Cm 12.4 -Tunneling No -Undermining/Tunneling Yes -Undermining/Tunneling Starts (O' 11 clock) -Undermining/Tunneling Ends (O'clock) 11 -Maximum Distance (cm) 2 -Circular Undermining No -Exudate Amt Small -Exudate Type Serosanguineous -Wound Margin Flat & Intact -Granulation Amt Medium (34-66%) -Granulation Quality [place] -Slough/Fibrin Yes -Necrosis Amt Small (1-33%) -Necrotic Tissue Type Adherent Slough -Structure Exposed N/A -Texture (Bety-wound Skin Appearance) Assessed, Scarring -Moisture (Bety-wound Skin Appearance Assessed ) -Color (Bety-wound Skin Appearance) Assessed -Temperature (Bety-wound Skin No Abnormality Appearance) (Pt Warm) -Tenderness on Palpation (Bety-wound No Skin Appearance) -Ulcer Cleansing Wound Cleanser -Foul Odor after Cleansing No -Anesthetic Used 4% Lidocaine Solution WC - Nurse 2 - General Ulcer CM Notes Start: 10/06/20 13:35 Freq: Status: Active Protocol: Activity Type Activity Date Activity User E-Sign Co-Sign Detail Recorded Client Recorded Date Recorded By Document 10/20/20 14:42 CESAR [id number] 10/20/20 14:44 10/20/20 14:42 Wound Center Nurse 2 [Procedure/Treatment] -Time 14:42 -Correct Patient Yes -Correct Side, Site, Position Yes -Correct Procedure Yes -Procedure Performed Yes -Type of Procedure Debridement -Clinical Debridement Subcutaneous -Tissue Removed Subcutaneous -Post Debridement (cm) - Length 4.1 -Post Debridement (cm) - Width 3.1 -Post Debridement (cm) - Depth 1.8 -Total Square (Post) (cm) 12.71 -Area of Debridement (cm) - Length 4.1 -Area of Debridement (cm) - Width 3.1 -Total Square (Area) (cm) 12.71 -Tunneling No -Undermining/Tunneling No -Circular Undermining No -Wound/Ulcer Outcome Not Healed -Ulcer Cleansing Rinsed/ Irrigated with Saline -Foul Odor after Cleansing No -Bioengineered Tissue No -Bleeding Controlled with Pressure -Offloading Yes -Type of Offloading Surgical Shoe -Treatment Response Procedure Tolerated Well -Debridement - Subq, 1st 20sq cm Yes [See Physician Procedure note for Specifics] Pain Scale: 0-10 Numeric [Pain] -Is Patient Pain Free? Yes - Nurse 3 - General Ulcer D/C NN Start: 10/06/20 13:35 Freq: Status: Active Protocol: Activity Type Activity Date Activity User E-Sign Co-Sign Detail Recorded Client Recorded Date Recorded By Document 10/20/20 14:45 [id number] 10/20/20 14:52 10/20/20 14:45 Wound Care Nurse 3 [Wound Dressing] #1- R MEDIAL FOOT -Ulcer Cleansing Rinsed/ Irrigated with Saline -Foul Odor after Cleansing No -Primary Dressing Covered/Secured Dry Gauze & with Roll Gauze, Secured with Tape Pain Scale: 0-10 Numeric [Pain] -Is Patient Pain Free? Yes - Visit Discharge [Visit Discharge Information] -Discharge Condition Stable -Ambulatory Status Ambulatory -Transportation Private Auto -Medication Reconcilliation completed Yes & provided to patient/care provider -Clinical Summary of Care Provided Yes Musculoskeletal: No Tenderness to Palpation of Joints or Extremities, Muscle Wasting, - - Forefoot deformities noted. Compartments remain soft. No bogginess or fluctuance on palpation. Neurological: - - Lack of normal epicritic sensation light touch is consistent with neuropathy status Psych/Mental Status: Normal Affect, Appropriate Debridement Note Post-Debridement Measurements/Treatment - Nurse 2 - General Ulcer CM Notes Start: 10/06/20 13:35 Freq: Status: Active Protocol: Activity Type Activity Date Activity User E-Sign Co-Sign Detail Recorded Client Recorded Date Recorded By Document 10/06/20 16:23 PL [id number] 10/06/20 16:25 PL Document 10/13/20 14:12 [id number] 10/13/20 14:47 JF Document 10/20/20 14:42 [id number] 10/20/20 14:44 JF 10/06/20 10/13/20 10/20/20 16:23 14:12 14:42 Wound Center Nurse 2 #1- R MEDIAL FOOT -Time 14:13 14:20 14:42 -Correct Patient Yes Yes Yes -Correct Side, Site, Position Yes Yes Yes -Correct Procedure Yes Yes Yes -Procedure Performed Yes Yes Yes -Type of Procedure Debridement Debridement Debridement -Clinical Debridement Subcutaneous Subcutaneous Subcutaneous -Tissue Removed Subcutaneous Subcutaneous Subcutaneous -Post Debridement (cm) - Length 3.5 4.5 4.1 -Post Debridement (cm) - Width 5.2 3 3.1 -Post Debridement (cm) - Depth 0.2 0.8 1.8 -Total Square (Post) (cm) 18.20 13.5 12.71 -Area of Debridement (cm) - Length 3.5 4.5 4.1 -Area of Debridement (cm) - Width 5.2 3 3.1 -Total Square (Area) (cm) 18.20 13.5 12.71 -Tunneling No No No -Tunneling Position (O'clock) 8 -Tunneling Distance (cm) 3.6 -Undermining/Tunneling No No -Circular Undermining No No No -Wound/Ulcer Outcome Not Healed Not Healed Not Healed -Ulcer Cleansing Rinsed/ Rinsed/ Rinsed/ Irrigated with Irrigated with Irrigated with Saline Saline Saline -Foul Odor after Cleansing No No No -Bioengineered Tissue No No No -Bleeding Controlled with Pressure Pressure -Offloading Yes Yes -Type of Offloading Total Contact Surgical Shoe Cast (TCC) - Right ($) -Treatment Response Procedure Procedure Tolerated Well Tolerated Well -Debridement - Subq, 1st 20sq cm Yes Yes Yes Pain Scale: 0-10 Numeric Is Patient Pain Free? Yes Yes Yes WC - Nurse 3 - General Ulcer D/C NN Start: 10/06/20 13:35 Freq: Status: Active Protocol: Activity Type Activity Date Activity User E-Sign Co-Sign Detail Recorded Client Recorded Date Recorded By Document 10/06/20 14:24 KR [id number] 10/06/20 14:25 KR Document 10/13/20 14:54 RB [id number] 10/13/20 14:54 RB Document 10/20/20 14:45 JF [id number] 10/20/20 14:52 JF 10/06/20 10/13/20 10/20/20 14:24 14:54 14:45 Wound Care Nurse 3 #1- R MEDIAL FOOT -Ulcer Cleansing Rinsed/ Rinsed/ Irrigated with Irrigated with Saline Saline -Foul Odor after Cleansing No No -Other Dressing dakin solution moistened gauze packed into wound -Primary Dressing Covered/Secured with Dry Gauze & Dry Gauze,Dry Dry Gauze & Roll Gauze, Gauze & Roll Roll Gauze, Secured with Gauze,Secured Secured with Tape with Tape Tape Vital Signs Blood Pressure (90/60-120/80) 150/78 H Blood Pressure Mean (mm Hg) 102 Source Monitor Position Sitting Blood Pressure Location Left Arm Pain Scale: 0-10 Numeric Is Patient Pain Free? Yes Yes Yes WC - Visit Discharge Discharge Condition Stable Stable Stable Ambulatory Status Ambulatory Ambulatory,Cane Ambulatory Transportation Private Auto Private Auto Private Auto Medication Reconcilliation completed & No Yes provided to patient/care provider Clinical Summary of Care Provided Yes Yes Wound debrided: medial forefoot Laterality: Right Wound Grade/Stage: grade 3 Type of Debridement: Excisional debridement Anesthesia Used: 5% Lidocaine Gel Depth: in the subcutaneous layer Percentage of wound debrided: 100 Instrument Used: #15 blade Tissue Removed: fibrous, devitalized subcutaneous, biofilm, slough Severity: Fat Layer Exposed Amount of bleeding with debridement: Mild Bleeding Controlled with: Pressure Patient tolerated procedure well Assessment/Plan Active Problems 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 Diabetes with neuropathy. Peripheral vascular disease with prior intervention noted. Strong smoking habits. Peripheral vascular disease concern. Malnutrition suspected Plan: I reviewed and discussed his case. Debridement was performed as noted in the clinical panel. To change daily Dakin wet-to-dry dressing packed into the deep aspect. He is not able to perform this on his own nor can his family help him. In that regard it is okay if he has this changed every other day with home health. His medical record was reviewed from [facility]. His microbiology report was reviewed and this demonstrates Group D enterococcus, gram-negative rods and gram positive rods. His most recent noninvasive vascular studies demonstrated monophasic waveforms at the ankle level to the right lower extremity. It is noted the full exam was not performed due to his noted stent placement however moderate to severe occlusive disease is suspected. He is already previously known to vascular specialist, Dr. Wong and I recommended referral to follow-up given his delayed healing, ulcer, continued smoking, and his history of peripheral vascular disease. He has an appointment scheduled for next Sunday to see if additional intervention is recommended or appropriate. I have performed an additional medical record review at [facility] and there does not appear to be any imaging studies on file. An x-ray of the foot was ordered. This did not demonstrate any fractures, dislocations, osseous destruction, soft tissue emphysema or foreign body. There is diminished bone density noted in the first metatarsal head and also adjacent rays. 3 nonweightbearing foot x-rays were reviewed. He understands he may require MRI evaluation also if lack of progress is noted or if infection signs develop. The patient was reassured local signs of infection have remained resolved to the foot today. It is noted he completed a course of antibiotics under the management of Dr. Kenyon. I also recommend updated labs to monitor his continued medical status and infection markers. His labs are reviewed with white blood cell count of 5.1, ESR 14, C-reactive protein 17.5. His hemoglobin A1c is also noted at 8.3% which she was advised to follow-up with his primary c are physician for diabetes diagnosis and management. He has an appointment to review this topic with his primary care physician next Sunday. To continue offloading with surgical shoe. He has an offloading felt pad applied to the strap and additional dual density Plastizote liners were also applied to take pressure off of the forefoot. To heel weight-bear and to reduce walking activity. To optimize nutrition with Jordan supplementations. A prescription was provided previously. To clean ulcer daily with soap and water and to perform a wet-to-dry dressing with Dakin's. To discontinue smoking. This is imperative for healing opportunities. It is noted he is not a diabetic. I answered all his questions. He will return to clinic in 1 week or call sooner if he has any questions or concerns. I would also like to consider advancement healing product such as epicord or epifix. Indications, benefits, anticipated healing time and management reviewed. Prior authorization will be initiated. He is amendable to proceed forward with this part of his treatment plan. Note: [employer] speech recognition diversional therapist software was used to create portions of this document. Sound-alike and misspelled words, as well as other diversional therapist errors may be contained in the documentation.
[2020-10-27 10:48] VITALS: BP 150/93; PULSE 107; RESP 18; TEMP 36.5; BMI 29.3
--- NOTE | 2020-10-27 13:22 | PCM.WC.PN ---
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 Status: Chronic Code(s): L97.513 - Non-pressure chronic ulcer of other part of right foot with necrosis of muscle (2) Tobacco abuse Status: Acute Code(s): Z72.0 - Tobacco use (3) Hallux valgus (acquired), right foot Status: Chronic Code(s): M20.11 - Hallux valgus (acquired), right foot (4) Type 2 diabetes mellitus with diabetic polyneuropathy Status: Chronic Code(s): E11.42 - Type 2 diabetes mellitus with diabetic polyneuropathy (5) Malnutrition Status: Chronic Code(s): E46 - Unspecified protein-calorie malnutrition (6) Other specified peripheral vascular diseases Status: Chronic Code(s): I73.89 - Other specified peripheral vascular diseases (7) Type 2 diabetes mellitus with foot ulcer Status: Chronic Code(s): E11.621 - Type 2 diabetes mellitus with foot ulcer; L97.509 - Non-pressure chronic ulcer of other part of unspecified foot with unspecified severity (8) Tinea unguium Status: Chronic Code(s): B35.1 - Tinea unguium (9) Other hereditary and idiopathic neuropathies Status: Chronic Code(s): G60.8 - Other hereditary and idiopathic neuropathies Type of Wound Date of Service: 10/27/20 Chief Complaint: Right foot ulcer History of Wound: This 65-year-old male was seen in the clinic with his family member for a 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 He was initially treated with Dr. Kenyon at [facility] who performed a surgical debridement on 09/06/2020. He was referred to the wound healing center for ongoing wound care and potential graft consideration. He denies odor and relates there is no redness. He does however report he was seen by Dr. Raul Wong several years ago in which he had arterial surgical intervention for traumatic injury. He has an upcoming CT scan scheduled with vascular surgery. He is wearing a surgical shoe. He reduce smoking to about nearly 1 pack/day this past week. He has been changing the dressing with Dakin wet-to-dry as advised with the assistance of home health which will not only be able to come out every other day. He was also informed of his elevated hemoglobin A1c and is scheduled to see his primary care physician. Progress of Wound: Stable - Physical Exam Vital Signs Temp Pulse Resp BP 97.7 F L 107 H 18 150/93 H 10/27/20 10:48 10/27/20 10:48 10/27/20 10:48 10/27/20 10:48 General: Alert, Oriented x3, Cooperative, No apparent distress HEENT: Atraumatic Extremities: No cyanosis, Capillary Refill Less than 3 Seconds, No Calf Tenderness, Diminished Peripheral Pulses, Edema - mild Skin: Ulcer/ Wound - No purulence, erythema, streaking, odor, necrosis. There is reduced probing at the 8 o'clock position. The adjacent skin is atrophic and hairless., - - toenails elongated, dystrophic and with subungual debris bilateral 1,2,3,4,5 with compression discomfort to fifth toes more than other toes Wound Measurements and Assessment WC - Nurse 1 - General Ulcer Measurement Start: 10/06/20 13:35 Freq: Status: Active Protocol: Activity Type Activity Date Activity User E-Sign Co-Sign Detail Recorded Client Recorded Date Recorded By Document 10/27/20 10:48 RB [id number] 10/27/20 10:55 RB 10/27/20 10:48 Wound Center Nurse 1 [Ulcer Assessment] #1- R MEDIAL FOOT -Combined with other wound No -Current Size (cm) - Length 4.1 -Current Size (cm) - Width 3.1 -Current Size (cm) - Depth 0.6 -Total Square Cm 12.71 -Undermining/Tunneling Yes -Undermining/Tunneling Starts (O' 2 clock) -Undermining/Tunneling Ends (O'clock) 2 -Maximum Distance (cm) 0.5 -Circular Undermining No -Exudate Amt Medium -Exudate Type Serosanguineous -Wound Margin Thickened & Rolled Under -Granulation Amt Medium (34-66%) -Granulation Quality [place] -Slough/Fibrin Yes -Necrosis Amt Small (1-33%) -Necrotic Tissue Type Adherent Slough -Structure Exposed N/A -Texture (Bety-wound Skin Appearance) Localized Edema ,Scarring -Moisture (Bety-wound Skin Appearance Assessed ) -Color (Bety-wound Skin Appearance) Assessed -Temperature (Bety-wound Skin No Abnormality Appearance) (Pt Warm) -Tenderness on Palpation (Bety-wound No Skin Appearance) -Ulcer Cleansing Wound Cleanser -Foul Odor after Cleansing No -Anesthetic Used 4% Lidocaine Solution - Nurse 2 - General Ulcer CM Notes Start: 10/06/20 13:35 Freq: Status: Active Protocol: Activity Type Activity Date Activity User E-Sign Co-Sign Detail Recorded Client Recorded Date Recorded By Document 10/27/20 11:00 CESAR [id number] 10/27/20 11:05 CESAR 10/27/20 11:00 Wound Center Nurse 2 [Procedure/Treatment] -Time 11:01 -Correct Patient Yes -Correct Side, Site, Position Yes -Correct Procedure Yes -Procedure Performed Yes -Type of Procedure Debridement -Clinical Debridement Subcutaneous -Tissue Removed Subcutaneous -Post Debridement (cm) - Length 3 -Post Debridement (cm) - Width 4.2 -Post Debridement (cm) - Depth 1.8 -Total Square (Post) (cm) 12.6 -Area of Debridement (cm) - Length 3 -Area of Debridement (cm) - Width 4.2 -Total Square (Area) (cm) 12.6 -Tunneling No -Undermining/Tunneling No -Circular Undermining No -Wound/Ulcer Outcome Not Healed -Ulcer Cleansing Rinsed/ Irrigated with Saline -Foul Odor after Cleansing No -Bioengineered Tissue No -Bleeding Controlled with Pressure -Offloading Yes -Type of Offloading Surgical Shoe -Treatment Response Procedure Tolerated Well -Debridement - Subq, 1st 20sq cm Yes [See Physician Procedure note for Specifics] Pain Scale: 0-10 Numeric [Pain] -Is Patient Pain Free? Yes - Nurse 3 - General Ulcer D/C NN Start: 10/06/20 13:35 Freq: Status: Active Protocol: Activity Type Activity Date Activity User E-Sign Co-Sign Detail Recorded Client Recorded Date Recorded By Document 10/27/20 11:08 JF [id number] 10/27/20 11:09 CESAR 10/27/20 11:08 Wound Care Nurse 3 [Wound Dressing] #1- R MEDIAL FOOT -Ulcer Cleansing Rinsed/ Irrigated with Saline -Foul Odor after Cleansing No -Primary Dressing Applied Aquacel AG 2x2 -Primary Dressing Covered/Secured Dry Gauze & with Roll Gauze, Secured with Tape -Aquacel AG 2x2 1 Pain Scale: 0-10 Numeric [Pain] -Is Patient Pain Free? Yes - Visit Discharge [Visit Discharge Information] -Discharge Condition Stable -Ambulatory Status Ambulatory,Cane -Transportation Private Auto -Accompanied by granddaughter -Medication Reconcilliation completed Yes & provided to patient/care provider -Clinical Summary of Care Provided Yes Musculoskeletal: Muscle Wasting, - - No bogginess or fluctuance on palpation. Compartments are soft to palpate Neurological: - - Lack of normal epicritic sensation light touch is consistent with neuropathy status Psych/Mental Status: Normal Affect, Appropriate Debridement Note Post-Debridement Measurements/Treatment - Nurse 2 - General Ulcer CM Notes Start: 10/06/20 13:35 Freq: Status: Active Protocol: Activity Type Activity Date Activity User E-Sign Co-Sign Detail Recorded Client Recorded Date Recorded By Document 10/06/20 16:23 PL [id number] 10/06/20 16:25 PL Document 10/13/20 14:12 [id number] 10/13/20 14:47 Document 10/20/20 14:42 [id number] 10/20/20 14:44 Document 10/27/20 11:00 [id number] 10/27/20 11:05 10/06/20 10/13/20 10/20/20 16:23 14:12 14:42 Wound Center Nurse 2 #1- R MEDIAL FOOT -Time 14:13 14:20 14:42 -Correct Patient Yes Yes Yes -Correct Side, Site, Position Yes Yes Yes -Correct Procedure Yes Yes Yes -Procedure Performed Yes Yes Yes -Type of Procedure Debridement Debridement Debridement -Clinical Debridement Subcutaneous Subcutaneous Subcutaneous -Tissue Removed Subcutaneous Subcutaneous Subcutaneous -Post Debridement (cm) - Length 3.5 4.5 4.1 -Post Debridement (cm) - Width 5.2 3 3.1 -Post Debridement (cm) - Depth 0.2 0.8 1.8 -Total Square (Post) (cm) 18.20 13.5 12.71 -Area of Debridement (cm) - Length 3.5 4.5 4.1 -Area of Debridement (cm) - Width 5.2 3 3.1 -Total Square (Area) (cm) 18.20 13.5 12.71 -Tunneling No No No -Tunneling Position (O'clock) 8 -Tunneling Distance (cm) 3.6 -Undermining/Tunneling No No -Circular Undermining No No No -Wound/Ulcer Outcome Not Healed Not Healed Not Healed -Ulcer Cleansing Rinsed/ Rinsed/ Rinsed/ Irrigated with Irrigated with Irrigated with Saline Saline Saline -Foul Odor after Cleansing No No No -Bioengineered Tissue No No No -Bleeding Controlled with Pressure Pressure -Offloading Yes Yes -Type of Offloading Total Contact Surgical Shoe Cast (TCC) - Right ($) -Treatment Response Procedure Procedure Tolerated Well Tolerated Well -Debridement - Subq, 1st 20sq cm Yes Yes Yes Pain Scale: 0-10 Numeric Is Patient Pain Free? Yes Yes Yes 10/27/20 11:00 Wound Center Nurse 2 #1- R MEDIAL FOOT -Time 11:01 -Correct Patient Yes -Correct Side, Site, Position Yes -Correct Procedure Yes -Procedure Performed Yes -Type of Procedure Debridement -Clinical Debridement Subcutaneous -Tissue Removed Subcutaneous -Post Debridement (cm) - Length 3 -Post Debridement (cm) - Width 4.2 -Post Debridement (cm) - Depth 1.8 -Total Square (Post) (cm) 12.6 -Area of Debridement (cm) - Length 3 -Area of Debridement (cm) - Width 4.2 -Total Square (Area) (cm) 12.6 -Tunneling No -Tunneling Position (O'clock) -Tunneling Distance (cm) -Undermining/Tunneling No -Circular Undermining No -Wound/Ulcer Outcome Not Healed -Ulcer Cleansing Rinsed/ Irrigated with Saline -Foul Odor after Cleansing No -Bioengineered Tissue No -Bleeding Controlled with Pressure -Offloading Yes -Type of Offloading Surgical Shoe -Treatment Response Procedure Tolerated Well -Debridement - Subq, 1st 20sq cm Yes Pain Scale: 0-10 Numeric Is Patient Pain Free? Yes - Nurse 3 - General Ulcer D/C NN Start: 10/06/20 13:35 Freq: Status: Active Protocol: Activity Type Activity Date Activity User E-Sign Co-Sign Detail Recorded Client Recorded Date Recorded By Document 10/06/20 14:24 KR [id number] 10/06/20 14:25 KR Document 10/13/20 14:54 RB [id number] 10/13/20 14:54 RB Document 10/20/20 14:45 JF [id number] 10/20/20 14:52 JF Document 10/27/20 11:08 JF [id number] 10/27/20 11:09 JF 10/06/20 10/13/20 10/20/20 14:24 14:54 14:45 Wound Care Nurse 3 #1- R MEDIAL FOOT -Ulcer Cleansing Rinsed/ Rinsed/ Irrigated with Irrigated with Saline Saline -Foul Odor after Cleansing No No -Primary Dressing Applied -Other Dressing dakin solution moistened gauze packed into wound -Primary Dressing Covered/Secured with Dry Gauze & Dry Gauze,Dry Dry Gauze & Roll Gauze, Gauze & Roll Roll Gauze, Secured with Gauze,Secured Secured with Tape with Tape Tape -Aquacel AG 2x2 Vital Signs Blood Pressure (90/60-120/80) 150/78 H Blood Pressure Mean (mm Hg) 102 Source Monitor Position Sitting Blood Pressure Location Left Arm Pain Scale: 0-10 Numeric Is Patient Pain Free? Yes Yes Yes WC - Visit Discharge Discharge Condition Stable Stable Stable Ambulatory Status Ambulatory Ambulatory,Cane Ambulatory Transportation Private Auto Private Auto Private Auto Accompanied by Medication Reconcilliation completed & No Yes provided to patient/care provider Clinical Summary of Care Provided Yes Yes 10/27/20 11:08 Wound Care Nurse 3 #1- R MEDIAL FOOT -Ulcer Cleansing Rinsed/ Irrigated with Saline -Foul Odor after Cleansing No -Primary Dressing Applied Aquacel AG 2x2 -Other Dressing -Primary Dressing Covered/Secured with Dry Gauze & Roll Gauze, Secured with Tape -Aquacel AG 2x2 1 Vital Signs Blood Pressure (90/60-120/80) Blood Pressure Mean (mm Hg) Source Position Blood Pressure Location Pain Scale: 0-10 Numeric Is Patient Pain Free? Yes WC - Visit Discharge Discharge Condition Stable Ambulatory Status Ambulatory,Cane Transportation Private Auto Accompanied by granddaughter Medication Reconcilliation completed & Yes provided to patient/care provider Clinical Summary of Care Provided Yes Wound debrided: medial forefoot Laterality: Right Wound Grade/Stage: grade 3 Type of Debridement: Excisional debridement Anesthesia Used: 5% Lidocaine Gel Depth: in the subcutaneous layer Percentage of wound debrided: 100 Instrument Used: #15 blade Tissue Removed: fibrous, devitalized subcutaneous, biofilm, slough Severity: Fat Layer Exposed Amount of bleeding with debridement: Mild Bleeding Controlled with: Pressure Patient tolerated procedure well Assessment/Plan Active Problems 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 Diabetes with neuropathy. Peripheral vascular disease with prior intervention noted. Strong smoking habits. Peripheral vascular disease concern. Malnutrition suspected Plan: I reviewed and discussed his case. Debridement was performed as noted in the clinical panel. To change daily Dakin wet-to-dry dressing packed into the deep aspect. His prior microbiology report from [facility] at the time of his surgery was reviewed and this demonstrates Group D enterococcus, gram-negative rods and gram positive rods. He has completed antibiotics and no longer has local or systemic signs of illness. His most recent noninvasive vascular studies demonstrated monophasic waveforms at the ankle level to the right lower extremity. He is already previously known to vascular specialist, Dr. Wong and I recommended referral to follow-up given his delayed healing, ulcer, continued smoking, and his history of peripheral vascular disease. He has a CT procedure scheduled now and was advised to follow up. His foot xray was reviewed. This did not demonstrate any fractures, dislocations, osseous destruction, soft tissue emphysema or foreign body. There is diminished bone density noted in the first metatarsal head and also adjacent rays. 3 nonweightbearing foot x-rays were reviewed. He understands he may require MRI evaluation also if lack of progress is noted or if infection signs develop. The patient was reassured local signs of infection have remained resolved to the foot today. It is noted he completed a course of antibiotics under the management of Dr. Kenyon. I also recommend updated labs to monitor his continued medical status and infection markers. His labs are reviewed with white blood cell count of 5.1, ESR 14, C-reactive protein 17.5. His hemoglobin A1c is also noted at 8.3% which she was advised to follow-up with his primary care physician for diabetes diagnosis and management. He has an appointment to review this topic with his primary care physician this Sunday. To continue offloading with surgical shoe. He has an offloading felt pad applied to the strap and additional dual density Plastizote liners were also applied to take pressure off of the forefoot. To heel weight-bear and to reduce walking activity. To optimize nutrition with Jordan supplementations. A prescription was provided previously. To clean ulcer daily with soap and water and to perform a wet-to-dry dressing with Dakin's. To discontinue smoking. This is imperative for healing opportunities. I answered all his questions. I recommend application of advanced wound healing product, epifix to optimize healing. Indications, benefits, anticipated healing time and management reviewed. Verbal consent was obtained. Prior authorization will be initiated. He is amendable to proceed forward with this part of his treatment plan. This is medically necessary for limb salvage. He has completed over 4 weeks of traditional benefit from this advanced therapy. I also debrided his nails bilateral 1, 2, 3, 4, and 5 to reduce nail thickness and length to reduce new wound formation, pressure, or pain. This was done without incident and he tolerated this well. He is at risk to trim his own nails and this procedure performed by medical professional is medically necessary. He will return to clinic in 1 week or call sooner if he has any questions or concerns. Note: [employer] speech recognition correctional counselor software was used to create portions of this document. Sound-alike and misspelled words, as well as other correctional counselor errors may be contained in the documentation.
== END 2020-10-31 23:59 ==
LOC: WC 10:30
PROVIDERS: PCP Preventive Medicine Occupational Medicine; Referring Provider Podiatrist Foot & Ankle Surgery; Visit Provider Nurse Practitioner
DX: E11.621 Type 2 diabetes mellitus with foot ulcer (principal); L97.513 Non-pressure chronic ulcer of other part of right foot with necrosis of muscle; E11.51 Type 2 diabetes mellitus with diabetic peripheral angiopathy without gangrene; E11.42 Type 2 diabetes mellitus with diabetic polyneuropathy; M20.11 Hallux valgus (acquired), right foot; B35.1 Tinea unguium; F17.210 Nicotine dependence, cigarettes, uncomplicated; Z79.82 Long term (current) use of aspirin; Z79.84 Long term (current) use of oral hypoglycemic drugs; Z79.899 Other long term (current) drug therapy
CPT/HCPCS: 11042; 29445; 93923

== ENCOUNTER → 2020-11-15 12:52 | Outpatient (CLI) | payer OTHER, SELFPAY ==
[2020-11-03 14:03] VITALS: BMI 29.3
[2020-11-10 13:29] VITALS: BMI 29.3
[2020-11-10 15:52] LABS: BUN 17 mg/dL (7-18); EST Glomerular Filtration Rate 90 mL/min (>60); Est Glom Filt Rate - Afr Amer 109 mL/min (>60)
--- NOTE | 2020-11-15 12:54 | CT_ITS ---
STUDY: CTA OF THE ABDOMINAL AORTA AND BILATERAL LOWER EXTREMITIES REASON FOR EXAM: Male, 65 years old. STENTS, NON-HEALING WOUND TO RT FOOT RADIATION DOSAGE (If Supplied By Facility): CTDIvol = ( 8.25 ) mGy, DLP = ( 1646.05 ) mGycm TECHNIQUE: Axial CT angiography multi-detector data acquisition was obtained from the dome of the liver to the level of the ankles following intravenous administration of . Axial images and MIP images were reconstructed from the axial data set. Post-processing of the angiographic images was performed, with multiplanar reformation and 3D reconstruction. Individualized dose optimization techniques were used for this CT. TECHNICAL QUALITY: Good COMPARISON: None. Descriptors of Narrowing: None (0%) Mild (< 50%) Moderate (50-70%) Severe (70-90%) Subtotal/Total Occlusion (90-100%) Non-Evaluable (technically non-diagnostic FINDINGS: Mild increased markings at the lung bases suggestive of scar Abdominal aorta: Atherosclerotic plaque formation of the abdominal aorta. Mild degree of mural thrombus is seen in its distal portion. Celiac and superior mesenteric arteries: Atherosclerotic plaque formation at the origin of these vessels. Inferior mesenteric artery: Not visualized. Right renal artery(arteries): Nonstenotic atherosclerotic plaque formation at its origin. Left renal artery(arteries): Nonstenotic atherosclerotic plaque at its origin. Right common iliac artery: Calcified atherosclerotic plaque. Right external iliac artery: Calcified atherosclerotic plaque. Right internal iliac artery: No demonstrated narrowing. Left common iliac artery: Atherosclerotic calcified plaque. Left external iliac artery: Atherosclerotic calcified plaques. Left internal iliac artery: No demonstrated narrowing. RIGHT LOWER EXTREMITY Right common femoral artery: No demonstrated narrowing. Right profundus femoris: No demonstrated narrowing. Right superficial femoral: Diffuse stenotic plaque throughout the superficial femoral artery. Right popliteal artery: Occlusion of the popliteal artery just distal to its origin. The stents at the level of the popliteal artery are occluded. Right tibioperoneal trunk: Occluded. Right anterior tibial artery: Anterior tibial artery is patent. Right posterior tibial artery: Posterior tibial artery is patent. Right peroneal artery: Not visualized. LEFT LOWER EXTREMITY Left common femoral artery: Atherosclerotic plaque formation. Left profundus femoris: No demonstrated narrowing. Left superficial femoral: Diffuse atherosclerotic plaque formation. Left popliteal artery: No demonstrated narrowing. Atherosclerotic plaque formation. Left tibioperoneal trunk: Patent. Left anterior tibial artery: Patent with multiple atherosclerotic plaques. Left posterior tibial artery: Patent. Left peroneal artery: Patent with skip areas of occlusion. CT/CTA Abd w/Runoff W/WO Contrast IMPRESSION: Occlusion of the stents at the level of the popliteal artery as described. Electronically Signed: Gibson Regan MD at 15:26 EST , Service support ,
== END ==
LOC: CT 12:53
PROVIDERS: PCP Preventive Medicine Occupational Medicine; Visit Provider Surgery Vascular Surgery
DX: I70.213 Atherosclerosis of native arteries of extremities with intermittent claudication, bilateral legs (principal); I77.1 Stricture of artery; I99.8 Other disorder of circulatory system; F17.200 Nicotine dependence, unspecified, uncomplicated; M19.90 Unspecified osteoarthritis, unspecified site; M70.88 Other soft tissue disorders related to use, overuse and pressure other site; M79.609 Pain in unspecified limb
CPT/HCPCS: 36415; 75635; 82565; 84520; Q9967

== ENCOUNTER 2020-11-24 08:30 | Outpatient (RCR) | payer OTHER, SELFPAY ==
[2020-11-01 00:35] VITALS: BP 150/93; PULSE 107; RESP 18; TEMP 36.5
[2020-11-03 14:03] VITALS: BP 143/78; PULSE 107; RESP 20; TEMP 36.8; BMI 29.3
[2020-11-03 15:00] VITALS: BP 143/78
--- NOTE | 2020-11-03 21:28 | PN.PCM_ITS ---
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 Status: Chronic Code(s): L97.513 - Non-pressure chronic ulcer of other part of right foot with necrosis of muscle (2) Tobacco abuse Status: Chronic Code(s): Z72.0 - Tobacco use (3) Hallux valgus (acquired), right foot Status: Chronic Code(s): M20.11 - Hallux valgus (acquired), right foot (4) Type 2 diabetes mellitus with diabetic polyneuropathy Status: Chronic Code(s): E11.42 - Type 2 diabetes mellitus with diabetic polyneuropathy (5) Malnutrition Status: Chronic Code(s): E46 - Unspecified protein-calorie malnutrition (6) Other specified peripheral vascular diseases Status: Chronic Code(s): I73.89 - Other specified peripheral vascular diseases (7) Cellulitis of right lower limb Status: Resolved Code(s): L03.115 - Cellulitis of right lower limb Type of Wound Date of Service: 11/03/20 Chief Complaint: Right foot ulcer History of Wound: This 65-year-old male was seen in the clinic with his family member for a 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 He was initially treated with Dr. Kenyon at [facility] who performed a surgical debridement on 09/06/2020. He was referred to the wound healing center for ongoing wound care and potential graft consideration. He denies odor and relates there is no redness. He does however report he was seen by Dr. Raul Wong several years ago in which he had arterial surgical intervention for traumatic injury. He has an upcoming CT scan scheduled with vascular surgery. He is wearing a surgical shoe. He reduce smoking to about nearly 1 pack/day this past week. He has been changing the dressing with Dakin wet-to-dry as advised with the assistance of home health which will not only be able to come out every other day. He was also informed of his elevated hemoglobin A1c and his diabetes diagnosis was confirmed with his primary care physician. He was started on Metformin. Progress of Wound: Improving - Physical Exam Vital Signs Temp Pulse Resp BP 98.3 F 107 H 20 H 143/78 H 11/03/20 14:03 11/03/20 14:03 11/03/20 14:11/03/20 15:00 General: Alert, Oriented x3, Cooperative, No apparent distress HEENT: Atraumatic Extremities: No cyanosis, Capillary Refill Less than 3 Seconds, No Calf Tenderness, Diminished Peripheral Pulses, Edema - Mild Skin: Ulcer/ Wound - No purulence, erythema, streaking, odor, local infection, deep tracking. There is no longer any exposed capsule to the right foot. His adjacent skin is hairless, atrophic, dry and hyperpigmented Wound Measurements and Assessment WC - Nurse 1 - General Ulcer Measurement Start: 11/03/20 14:00 Freq: Status: Active Protocol: Activity Type Activity Date Activity User E-Sign Co-Sign Detail Recorded Client Recorded Date Recorded By Document 11/03/20 14:03 DL [id number] 11/03/20 14:09 DL 11/03/20 14:03 Wound Center Nurse 1 [Ulcer Assessment] #1- R MEDIAL FOOT -Current Size (cm) - Length 1.2 -Current Size (cm) - Width 3.5 -Current Size (cm) - Depth 0.5 -Total Square Cm 4.20 -Photo Taken No -Exudate Amt Medium -Exudate Type Serosanguineous -Wound Margin Thickened & Rolled Under -Granulation Amt Medium (34-66%) -Granulation Quality Red -Necrosis Amt Medium (34-66%) -Necrotic Tissue Type Adherent Slough -Structure Exposed N/A -Texture (Bety-wound Skin Appearance) Scarring -Moisture (Bety-wound Skin Appearance Dry/Scaly ) -Color (Bety-wound Skin Appearance) Hemosiderin Staining -Temperature (Bety-wound Skin No Abnormality Appearance) (Pt Warm) -Tenderness on Palpation (Bety-wound No Skin Appearance) -Ulcer Cleansing Wound Cleanser -Foul Odor after Cleansing No -Anesthetic Used 4% Lidocaine Solution WC - Nurse 2 - General Ulcer CM Notes Start: 11/03/20 14:00 Freq: Status: Active Protocol: Activity Type Activity Date Activity User E-Sign Co-Sign Detail Recorded Client Recorded Date Recorded By Document 11/03/20 14:34 CESAR [id number] 11/03/20 14:39 CESAR 11/03/20 14:34 Wound Center Nurse 2 [Procedure/Treatment] -Time 14:34 -Correct Patient Yes -Correct Side, Site, Position Yes -Correct Procedure Yes -Procedure Performed Yes -Type of Procedure Debridement -Clinical Debridement Subcutaneous -Tissue Removed Subcutaneous -Post Debridement (cm) - Length 3.6 -Post Debridement (cm) - Width 3.0 -Post Debridement (cm) - Depth 0.7 -Total Square (Post) (cm) 10.80 -Area of Debridement (cm) - Length 3.6 -Area of Debridement (cm) - Width 3.0 -Total Square (Area) (cm) 10.80 -Tunneling No -Undermining/Tunneling No -Circular Undermining No -Wound/Ulcer Outcome Not Healed -Ulcer Cleansing Rinsed/ Irrigated with Saline -Foul Odor after Cleansing No -Bioengineered Tissue No -Bleeding Controlled with Pressure -Offloading Yes -Type of Offloading Surgical Shoe -Treatment Response Procedure Tolerated Well -Debridement - Subq, 1st 20sq cm Yes [See Physician Procedure note for Specifics] Pain Scale: 0-10 Numeric [Pain] -Is Patient Pain Free? Yes - Nurse 3 - General Ulcer D/C NN Start: 11/03/20 14:00 Freq: Status: Active Protocol: Activity Type Activity Date Activity User E-Sign Co-Sign Detail Recorded Client Recorded Date Recorded By Document 11/03/20 15:00 [id number] 11/03/20 15:00 RB 11/03/20 15:00 Wound Care Nurse 3 [Wound Dressing] #1- R MEDIAL FOOT -Ulcer Cleansing Wound Cleanser -Primary Dressing Applied Aquacel AG 4x4 -Primary Dressing Covered/Secured Dry Gauze,Dry with Gauze & Roll Gauze,Secured with Tape -Aquacel AG 4x4 1 [Post Procedure Tolerated] -Treatment Response Procedure Tolerated Well Vital Signs [Blood Pressure] -Blood Pressure (90/60-120/80) 143/78 H -Blood Pressure Mean (mm Hg) 99 -Source Monitor -Position Semi-Fowlers -Blood Pressure Location Left Arm Pain Scale: 0-10 Numeric [Pain] -Is Patient Pain Free? Yes - Visit Discharge [Visit Discharge Information] -Discharge Condition Stable -Ambulatory Status Ambulatory,Cane -Transportation Private Auto -Medication Reconcilliation completed No & provided to patient/care provider -Clinical Summary of Care Provided Yes Musculoskeletal: No Tenderness to Palpation of Joints or Extremities, Muscle Wasting, - - Hallux valgus deformity noted Neurological: - - Altered sensation Psych/Mental Status: Normal Affect, Appropriate Debridement Note Post-Debridement Measurements/Treatment WC - Nurse 2 - General Ulcer CM Notes Start: 11/03/20 14:00 Freq: Status: Active Protocol: Activity Type Activity Date Activity User E-Sign Co-Sign Detail Recorded Client Recorded Date Recorded By Document 11/03/20 14:34 [id number] 11/03/20 14:39 CESAR 11/03/20 14:34 Wound Center Nurse 2 #1- R MEDIAL FOOT -Time 14:34 -Correct Patient Yes -Correct Side, Site, Position Yes -Correct Procedure Yes -Procedure Performed Yes -Type of Procedure Debridement -Clinical Debridement Subcutaneous -Tissue Removed Subcutaneous -Post Debridement (cm) - Length 3.6 -Post Debridement (cm) - Width 3.0 -Post Debridement (cm) - Depth 0.7 -Total Square (Post) (cm) 10.80 -Area of Debridement (cm) - Length 3.6 -Area of Debridement (cm) - Width 3.0 -Total Square (Area) (cm) 10.80 -Tunneling No -Undermining/Tunneling No -Circular Undermining No -Wound/Ulcer Outcome Not Healed -Ulcer Cleansing Rinsed/ Irrigated with Saline -Foul Odor after Cleansing No -Bioengineered Tissue No -Bleeding Controlled with Pressure -Offloading Yes -Type of Offloading Surgical Shoe -Treatment Response Procedure Tolerated Well -Debridement - Subq, 1st 20sq cm Yes Pain Scale: 0-10 Numeric Is Patient Pain Free? Yes - Nurse 3 - General Ulcer D/C NN Start: 11/03/20 14:00 Freq: Status: Active Protocol: Activity Type Activity Date Activity User E-Sign Co-Sign Detail Recorded Client Recorded Date Recorded By Document 11/03/20 15:00 [id number] 11/03/20 15:00 RB 11/03/20 15:00 Wound Care Nurse 3 #1- R MEDIAL FOOT -Ulcer Cleansing Wound Cleanser -Primary Dressing Applied Aquacel AG 4x4 -Primary Dressing Covered/Secured with Dry Gauze,Dry Gauze & Roll Gauze,Secured with Tape -Aquacel AG 4x4 1 Treatment Response Procedure Tolerated Well Vital Signs Blood Pressure (90/60-120/80) 143/78 H Blood Pressure Mean (mm Hg) 99 Source Monitor Position Semi-Fowlers Blood Pressure Location Left Arm Pain Scale: 0-10 Numeric Is Patient Pain Free? Yes - Visit Discharge Discharge Condition Stable Ambulatory Status Ambulatory,Cane Transportation Private Auto Medication Reconcilliation completed & No provided to patient/care provider Clinical Summary of Care Provided Yes Wound debrided: medial forefoot Laterality: Right Wound Grade/Stage: grade 3 Type of Debridement: Excisional debridement Anesthesia Used: 5% Lidocaine Gel Depth: in the subcutaneous layer Percentage of wound debrided: 100 Instrument Used: #15 blade Tissue Removed: fibrous, devitalized subcutaneous, biofilm, slough Severity: Fat Layer Exposed Amount of bleeding with debridement: Mild Bleeding Controlled with: Pressure Patient tolerated procedure well Assessment/Plan Active Problems 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 Diabetes with neuropathy. Peripheral vascular disease with prior intervention noted. Strong smoking habits. Peripheral vascular disease concern. Malnutrition suspected Plan: I reviewed and discussed his case. Debridement was performed as noted in the clinical panel. To change daily now with [employer] I recommended application of advanced wound healing product, epifix. He was approved however does have a higher deductible and [id number] expense. This was reviewed with him and he defers proceeding forward today. Again, the indications, benefits, and anticipated healing time management were reviewed. I also reviewed the timing recommendation of this advanced product especially with his recent resolution of infection and now his vascular plan is taking shape. His prior microbiology report from [facility] at the time of his surgery was reviewed and this demonstrates Group D enterococcus, gram-negative rods and gram positive rods. He has completed antibiotics and no longer has local or systemic signs of illness. His most recent noninvasive vascular studies demonstrated monophasic waveforms at the ankle level to the right lower extremity. He is already previously known to vascular specialist, Dr. Wong and I recommended referral to follow-up given his delayed healing, ulcer, continued smoking, and his history of peripheral vascular disease. He has a CT procedure scheduled now and was advised to follow up. His foot xray was reviewed. This did not demonstrate any fractures, dislocations, osseous destruction, soft tissue emphysema or foreign body. There is diminished bone density noted in the first metatarsal head and also adjacent rays. Three nonweightbearing foot x-rays were reviewed. He understands he may require MRI evaluation also if lack of progress is noted or if infection signs develop. The patient was reassured local signs of infection have remained resolved to the foot today. It is noted he completed a course of antibiotics under the management of Dr. Kenyon. I also recommend updated labs to monitor his continued medical status and infection markers. His labs are reviewed with white blood cell count of 5.1, ESR 14, C-reactive protein 17.5. His hemoglobin A1c is also noted at 8.3% which she was advised to follow- up with his primary care physician for diabetes diagnosis and management. He was started on Metformin. To continue offloading with surgical shoe. He has an offloading felt pad applied to the strap and additional dual density Plastizote liners were also applied to take pressure off of the forefoot. To heel weight- bear and to reduce walking activity. To optimize nutrition with Jordan supplementations. A prescription was provided previously. To clean ulcer daily with soap and water prior to daily dressing changes. To discontinue smoking. This is imperative for healing opportunities. I answered all his questions. He will return to clinic in 1 week or call sooner if he has any questions or concerns. Note: Dagne Dover speech recognition septic technician software was used to create portions of this document. Sound-alike and misspelled words, as well as other septic technician errors may be contained in the documentation.
[2020-11-10 13:29] VITALS: BP 163/84; PULSE 92; RESP 22; TEMP 36; BMI 29.3
--- NOTE | 2020-11-10 21:56 | PCM.WC.PN ---
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 Status: Chronic Code(s): L97.513 - Non-pressure chronic ulcer of other part of right foot with necrosis of muscle (2) Tobacco abuse Status: Chronic Code(s): Z72.0 - Tobacco use (3) Hallux valgus (acquired), right foot Status: Chronic Code(s): M20.11 - Hallux valgus (acquired), right foot (4) Type 2 diabetes mellitus with diabetic polyneuropathy Status: Chronic Code(s): E11.42 - Type 2 diabetes mellitus with diabetic polyneuropathy (5) Malnutrition Status: Chronic Code(s): E46 - Unspecified protein-calorie malnutrition (6) Other specified peripheral vascular diseases Status: Chronic Code(s): I73.89 - Other specified peripheral vascular diseases (7) Cellulitis of right lower limb Status: Resolved Code(s): L03.115 - Cellulitis of right lower limb Type of Wound Date of Service: 11/10/20 Chief Complaint: Right foot ulcer History of Wound: This 65-year-old male was seen in the clinic with his family member for a wound on his right foot that 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 He denies odor and relates there is no redness. He does however report he was seen by Dr. Raul Wong several years ago in which he had arterial surgical intervention for traumatic injury. He has an upcoming CT scan scheduled with vascular surgery. He is wearing a surgical shoe. He reduce smoking to about nearly 1 pack/day this past week. He has been changing the dressing with Dakin wet-to-dry as advised with the assistance of home health which will not only be able to come out every other day. He was also informed of his elevated hemoglobin A1c and his diabetes diagnosis was confirmed with his primary care physician. He was started on Metformin. Progress of Wound: Improving - Physical Exam Vital Signs Temp Pulse Resp BP 96.8 F L 92 22 H 163/84 H 11/10/20 13:29 11/10/20 13:29 11/10/20 13:29 11/10/20 13:29 General: Alert, Oriented x3, Cooperative, No apparent distress Extremities: No cyanosis, Capillary Refill Less than 3 Seconds, No Calf Tenderness, Diminished Peripheral Pulses, Edema Skin: Ulcer/ Wound - No purulence, erythema, string, odor, infection. Adjacent skin is hairless and atrophic. Improvement in granulation tissue was noted to the ulcer bed Wound Measurements and Assessment - Nurse 1 - General Ulcer Measurement Start: 11/03/20 14:00 Freq: Status: Active Protocol: Activity Type Activity Date Activity User E-Sign Co-Sign Detail Recorded Client Recorded Date Recorded By Document 11/10/20 13:29 [facility] [id number] 11/10/20 13:39 DL 11/10/20 13:29 Wound Center Nurse 1 [Ulcer Assessment] #1- R MEDIAL FOOT -Combined with other wound No -Current Size (cm) - Length 2.5 -Current Size (cm) - Width 3.6 -Current Size (cm) - Depth 0.2 -Total Square Cm 9.00 -Photo Taken No -Tunneling No -Undermining/Tunneling No -Circular Undermining No -Exudate Amt Medium -Exudate Type Serosanguineous -Wound Margin Thickened & Rolled Under -Granulation Amt Medium (34-66%) -Granulation Quality Hyper- granulation, [place],Red -Necrosis Amt Medium (34-66%) -Necrotic Tissue Type Adherent Slough -Structure Exposed N/A -Texture (Bety-wound Skin Appearance) Assessed -Moisture (Bety-wound Skin Appearance Assessed,Dry/ ) Scaly -Color (Bety-wound Skin Appearance) Assessed -Temperature (Bety-wound Skin No Abnormality Appearance) (Pt Warm) -Tenderness on Palpation (Bety-wound No Skin Appearance) -Ulcer Cleansing Wound Cleanser -Foul Odor after Cleansing No -Anesthetic Used 4% Lidocaine Solution - Nurse 2 - General Ulcer CM Notes Start: 11/03/20 14:00 Freq: Status: Active Protocol: Activity Type Activity Date Activity User E-Sign Co-Sign Detail Recorded Client Recorded Date Recorded By Document 11/10/20 13:48 CESAR [id number] 11/10/20 13:51 CESAR 11/10/20 13:48 Wound Center Nurse 2 [Procedure/Treatment] -Time 13:49 -Correct Patient Yes -Correct Side, Site, Position Yes -Correct Procedure Yes -Procedure Performed Yes -Type of Procedure Debridement -Clinical Debridement Subcutaneous -Tissue Removed Subcutaneous -Post Debridement (cm) - Length 2.5 -Post Debridement (cm) - Width 3.7 -Post Debridement (cm) - Depth 0.2 -Total Square (Post) (cm) 9.25 -Area of Debridement (cm) - Length 2.5 -Area of Debridement (cm) - Width 3.7 -Total Square (Area) (cm) 9.25 -Tunneling Yes -Tunneling Position (O'clock) 6 -Tunneling Distance (cm) 2.2 -Undermining/Tunneling No -Circular Undermining No -Wound/Ulcer Outcome Not Healed -Ulcer Cleansing Rinsed/ Irrigated with Saline -Foul Odor after Cleansing No -Bioengineered Tissue No -Bleeding Controlled with Pressure -Offloading Yes -Type of Offloading Surgical Shoe -Treatment Response Procedure Tolerated Well -Debridement - Subq, 1st 20sq cm Yes [See Physician Procedure note for Specifics] Pain Scale: 0-10 Numeric [Pain] -Is Patient Pain Free? Yes - Nurse 3 - General Ulcer D/C NN Start: 11/03/20 14:00 Freq: Status: Active Protocol: Activity Type Activity Date Activity User E-Sign Co-Sign Detail Recorded Client Recorded Date Recorded By Document 11/10/20 14:04 [facility] [id number] 11/10/20 14:04 [facility] 11/10/20 14:04 Wound Care Nurse 3 [Wound Dressing] #1- R MEDIAL FOOT -Ulcer Cleansing Rinsed/ Irrigated with Saline -Foul Odor after Cleansing No -Primary Dressing Applied Aquacel AG 2x2 -Primary Dressing Covered/Secured Dry Gauze & with Roll Gauze, Secured with Tape -Aquacel AG 2x2 1 [Post Procedure Tolerated] -Treatment Response Procedure Tolerated Well Pain Scale: 0-10 Numeric [Pain] -Is Patient Pain Free? Yes - Visit Discharge [Visit Discharge Information] -Discharge Condition Stable -Ambulatory Status Ambulatory -Transportation Private Auto -Accompanied by dodie [Facility Notification] -Facility Type Home Health Musculoskeletal: No Tenderness to Palpation of Joints or Extremities, Muscle Wasting Neurological: - - Lack of normal epicritic sensation light touch is consistent with neuropathy status Psych/Mental Status: Normal Affect, Appropriate Debridement Note Post-Debridement Measurements/Treatment - Nurse 2 - General Ulcer CM Notes Start: 11/03/20 14:00 Freq: Status: Active Protocol: Activity Type Activity Date Activity User E-Sign Co-Sign Detail Recorded Client Recorded Date Recorded By Document 11/03/20 14:34 [id number] 11/03/20 14:39 JF Document 11/10/20 13:48 [id number] 11/10/20 13:51 JF 11/03/20 11/10/20 14:34 13:48 Wound Center Nurse 2 #1- R MEDIAL FOOT -Time 14:34 13:49 -Correct Patient Yes Yes -Correct Side, Site, Position Yes Yes -Correct Procedure Yes Yes -Procedure Performed Yes Yes -Type of Procedure Debridement Debridement -Clinical Debridement Subcutaneous Subcutaneous -Tissue Removed Subcutaneous Subcutaneous -Post Debridement (cm) - Length 3.6 2.5 -Post Debridement (cm) - Width 3.0 3.7 -Post Debridement (cm) - Depth 0.7 0.2 -Total Square (Post) (cm) 10.80 9.25 -Area of Debridement (cm) - Length 3.6 2.5 -Area of Debridement (cm) - Width 3.0 3.7 -Total Square (Area) (cm) 10.80 9.25 -Tunneling No Yes -Tunneling Position (O'clock) 6 -Tunneling Distance (cm) 2.2 -Undermining/Tunneling No No -Circular Undermining No No -Wound/Ulcer Outcome Not Healed Not Healed -Ulcer Cleansing Rinsed/ Rinsed/ Irrigated with Irrigated with Saline Saline -Foul Odor after Cleansing No No -Bioengineered Tissue No No -Bleeding Controlled with Pressure Pressure -Offloading Yes Yes -Type of Offloading Surgical Shoe Surgical Shoe -Treatment Response Procedure Procedure Tolerated Well Tolerated Well -Debridement - Subq, 1st 20sq cm Yes Yes Pain Scale: 0-10 Numeric Is Patient Pain Free? Yes Yes - Nurse 3 - General Ulcer D/C NN Start: 11/03/20 14:00 Freq: Status: Active Protocol: Activity Type Activity Date Activity User E-Sign Co-Sign Detail Recorded Client Recorded Date Recorded By Document 11/03/20 15:00 RB [id number] 11/03/20 15:00 RB Document 11/10/20 14:04 [facility] [id number] 11/10/20 14:04 [facility] 11/03/20 11/10/20 15:00 14:04 Wound Care Nurse 3 #1- R MEDIAL FOOT -Ulcer Cleansing Wound Cleanser Rinsed/ Irrigated with Saline -Foul Odor after Cleansing No -Primary Dressing Applied Aquacel AG 4x4 Aquacel AG 2x2 -Primary Dressing Covered/Secured with Dry Gauze,Dry Dry Gauze & Gauze & Roll Roll Gauze, Gauze,Secured Secured with with Tape Tape -Aquacel AG 4x4 1 -Aquacel AG 2x2 1 Treatment Response Procedure Procedure Tolerated Well Tolerated Well Vital Signs Blood Pressure (90/60-120/80) 143/78 H Blood Pressure Mean (mm Hg) 99 Source Monitor Position Semi-Fowlers Blood Pressure Location Left Arm Pain Scale: 0-10 Numeric Is Patient Pain Free? Yes Yes WC - Visit Discharge Discharge Condition Stable Stable Ambulatory Status Ambulatory,Cane Ambulatory Transportation Private Auto Private Auto Accompanied by niece Medication Reconcilliation completed & No provided to patient/care provider Clinical Summary of Care Provided Yes Facility Type Home Health Wound debrided: medial forefoot Laterality: Right Wound Grade/Stage: grade 3 Type of Debridement: Excisional debridement Anesthesia Used: 5% Lidocaine Gel Depth: in the subcutaneous layer Percentage of wound debrided: 100 Instrument Used: #15 blade Tissue Removed: fibrous, devitalized subcutaneous, biofilm, slough Severity: Fat Layer Exposed Amount of bleeding with debridement: Mild Bleeding Controlled with: Pressure Patient tolerated procedure well Assessment/Plan Active Problems 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 Diabetes with neuropathy. Peripheral vascular disease with prior intervention noted. Strong smoking habits. Peripheral vascular disease concern. Malnutrition suspected Plan: I reviewed and discussed his case. Debridement was performed as noted in the clinical panel. To change daily now with dakin wet to dry dressing at new tunneling site at the 6 oclock location. No purulence was noted however this is a status change and will be monitored close. I recommended application of advanced wound healing product, epifix. He was approved however does have a higher deductible and [id number]-[id number] expense. This was reviewed with him and he defers proceeding forward today. Again, the indications, benefits, and anticipated healing time management were reviewed. I also reviewed the timing recommendation of this advanced product especially with his recent resolution of infection and now his vascular plan is taking shape. His prior microbiology report from [facility] at the time of his surgery was reviewed and this demonstrates Group D enterococcus, gram-negative rods and gram positive rods. He has completed antibiotics and no longer has local or systemic signs of illness. His most recent noninvasive vascular studies demonstrated monophasic waveforms at the ankle level to the right lower extremity. He is already previously known to vascular specialist, Dr. Wong and I recommended referral to follow-up given his delayed healing, ulcer, continued smoking, and his history of peripheral vascular disease. He has a CT procedure scheduled now and was advised to follow up. His foot xray was reviewed. This did not demonstrate any fractures, dislocations, osseous destruction, soft tissue emphysema or foreign body. There is diminished bone density noted in the first metatarsal head and also adjacent rays. Three nonweightbearing foot x-rays were reviewed. He understands he may require MRI evaluation also if lack of progress is noted or if infection signs develop. The patient was reassured local signs of infection have remained resolved to the foot today. It is noted he completed a course of antibiotics under the management of Dr. Kenyon. I also recommend updated labs to monitor his continued medical status and infection markers. His labs are reviewed with white blood cell count of 5.1, ESR 14, C-reactive protein 17.5. His hemoglobin A1c is also noted at 8.3% which she was advised to follow-up with his primary care physician for diabetes diagnosis and management. He was started on Metformin. To continue offloading with surgical shoe. He has an offloading felt pad applied to the strap and additional dual density Plastizote liners were also applied to take pressure off of the forefoot. To heel weight-bear and to reduce walking activity. To optimize nutrition with Jordan supplementations. A prescription was provided previously. To clean ulcer daily with soap and water prior to daily dressing changes. To discontinue smoking. This is imperative for healing opportunities. I answered all his questions. He will return to clinic in 1 week or call sooner if he has any questions or concerns. Note: [employer] speech recognition marine machinist software was used to create portions of this document. Sound-alike and misspelled words, as well as other marine machinist errors may be contained in the documentation. The medical decision making level is limited based on data including the review of prior external notes, review of a prior test, or ordering a test. The problems addressed require a low medical decision making level which includes two or more minor problems, a stable chronic illness, or an acute uncomplicated illness or injury.
[2020-11-17 14:52] VITALS: BP 161/84; PULSE 91; RESP 16; TEMP 36; BMI 29.3
--- NOTE | 2020-11-17 15:36 | PN.PCM_ITS ---
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 Status: Chronic Code(s): L97.513 - Non-pressure chronic ulcer of other part of right foot with necrosis of muscle (2) Tobacco abuse Status: Chronic Code(s): Z72.0 - Tobacco use (3) Hallux valgus (acquired), right foot Status: Chronic Code(s): M20.11 - Hallux valgus (acquired), right foot (4) Type 2 diabetes mellitus with diabetic polyneuropathy Status: Chronic Code(s): E11.42 - Type 2 diabetes mellitus with diabetic polyneuropathy (5) Malnutrition Status: Chronic Code(s): E46 - Unspecified protein-calorie malnutrition (6) Other specified peripheral vascular diseases Status: Chronic Code(s): I73.89 - Other specified peripheral vascular diseases (7) Cellulitis of right lower limb Status: Resolved Code(s): L03.115 - Cellulitis of right lower limb Type of Wound Date of Service: 11/17/20 Chief Complaint: Right foot ulcer History of Wound: This 65-year-old male was seen in the clinic with his family member for a wound on his right foot that 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 He denies odor and relates there is no redness. He does however report he was seen by Dr. Raul Wong several years ago in which he had arterial surgical intervention for traumatic injury. He has an upcoming CT scan performed this Sunday and has a follow-up visit on November [address] Wong to review the results and his plan recommendations. He is wearing a surgical shoe. He reduce smoking to about nearly 1 pack/day this past week. He has been changing the dressing with Dakin wet-to-dry as advised with the assistance of home health which will not only be able to come out every other day. He continues on Metformin for his recently diagnosed diabetes status. Progress of Wound: Improving - Physical Exam Vital Signs Temp Pulse Resp BP 96.8 F L 91 16 161/84 H 11/17/20 14:52 11/17/20 14:52 11/17/20 14:52 11/17/20 14:52 General: Alert, Oriented x3, Cooperative, No apparent distress HEENT: Atraumatic Extremities: No cyanosis, Capillary Refill Less than 3 Seconds, No Calf Tenderness, Diminished Peripheral Pulses, Edema - Mild Skin: Ulcer/ Wound - No purulence, erythema, streaking, odor, gross signs of infection. There is still deeper probing at the 6 o'clock position. The rest of the wound is granular with peripheral epithelialization noted, - - The adjacent skin is hairless and atrophic Wound Measurements and Assessment - Nurse 1 - General Ulcer Measurement Start: 11/03/20 14:00 Freq: Status: Active Protocol: Activity Type Activity Date Activity User E-Sign Co-Sign Detail Recorded Client Recorded Date Recorded By Document 11/17/20 14:52 [facility] [id number] 11/17/20 15:01 [facility] 11/17/20 14:52 Wound Center Nurse 1 [Ulcer Assessment] #1- R MEDIAL FOOT -Combined with other wound No -Current Size (cm) - Length 2.2 -Current Size (cm) - Width 3.3 -Current Size (cm) - Depth 0.3 -Total Square Cm 7.26 -Photo Taken No -Epithelialization Small 1-33% -Tunneling No -Undermining/Tunneling No -Circular Undermining No -Exudate Amt Medium -Exudate Type Serosanguineous -Wound Margin Distinct, Outline Attached -Granulation Amt Medium (34-66%) -Granulation Quality [place] -Slough/Fibrin Yes -Necrosis Amt Medium (34-66%) -Necrotic Tissue Type Adherent Slough -Texture (Bety-wound Skin Appearance) Assessed,Callus ,Scarring -Moisture (Bety-wound Skin Appearance Assessed,Dry/ ) Scaly -Color (Bety-wound Skin Appearance) Assessed -Temperature (Bety-wound Skin No Abnormality Appearance) (Pt Warm) -Tenderness on Palpation (Bety-wound No Skin Appearance) -Ulcer Cleansing Rinsed/ Irrigated with Saline -Foul Odor after Cleansing No -Anesthetic Used 4% Lidocaine Solution WC - Nurse 3 - General Ulcer D/C NN Start: 11/03/20 14:00 Freq: Status: Active Protocol: Activity Type Activity Date Activity User E-Sign Co-Sign Detail Recorded Client Recorded Date Recorded By Document 11/17/20 15:16 [facility] [id number] 11/17/20 15:18 [facility] 11/17/20 15:16 Wound Care Nurse 3 [Wound Dressing] -Ulcer Cleansing Rinsed/ Irrigated with Saline -Foul Odor after Cleansing No -Primary Dressing Applied Other -Other Dressing moist to dry saline -Primary Dressing Covered/Secured Dry Gauze & with Roll Gauze, Secured with Tape [Post Procedure Tolerated] -Treatment Response Procedure Tolerated Well Pain Scale: 0-10 Numeric [Pain] -Is Patient Pain Free? Yes - Visit Discharge [Visit Discharge Information] -Discharge Condition Stable -Ambulatory Status Ambulatory,Cane -Transportation Private Auto -Accompanied by niece [Facility Notification] -Facility Type Home Health Musculoskeletal: No Tenderness to Palpation of Joints or Extremities, Muscle Wasting, - - Compartments are soft. There is no fluctuance or bogginess Neurological: - - Lack of normal epicritic sensation light touch is consistent with neuropathy status Psych/Mental Status: Normal Affect, Appropriate Debridement Note Post-Debridement Measurements/Treatment - Nurse 2 - General Ulcer CM Notes Start: 11/03/20 14:00 Freq: Status: Active Protocol: Activity Type Activity Date Activity User E-Sign Co-Sign Detail Recorded Client Recorded Date Recorded By Document 11/03/20 14:34 [id number] 11/03/20 14:39 Document 11/10/20 13:48 [id number] 11/10/20 13:51 11/03/20 11/10/20 14:34 13:48 Wound Center Nurse 2 #1- R MEDIAL FOOT -Time 14:34 13:49 -Correct Patient Yes Yes -Correct Side, Site, Position Yes Yes -Correct Procedure Yes Yes -Procedure Performed Yes Yes -Type of Procedure Debridement Debridement -Clinical Debridement Subcutaneous Subcutaneous -Tissue Removed Subcutaneous Subcutaneous -Post Debridement (cm) - Length 3.6 2.5 -Post Debridement (cm) - Width 3.0 3.7 -Post Debridement (cm) - Depth 0.7 0.2 -Total Square (Post) (cm) 10.80 9.25 -Area of Debridement (cm) - Length 3.6 2.5 -Area of Debridement (cm) - Width 3.0 3.7 -Total Square (Area) (cm) 10.80 9.25 -Tunneling No Yes -Tunneling Position (O'clock) 6 -Tunneling Distance (cm) 2.2 -Undermining/Tunneling No No -Circular Undermining No No -Wound/Ulcer Outcome Not Healed Not Healed -Ulcer Cleansing Rinsed/ Rinsed/ Irrigated with Irrigated with Saline Saline -Foul Odor after Cleansing No No -Bioengineered Tissue No No -Bleeding Controlled with Pressure Pressure -Offloading Yes Yes -Type of Offloading Surgical Shoe Surgical Shoe -Treatment Response Procedure Procedure Tolerated Well Tolerated Well -Debridement - Subq, 1st 20sq cm Yes Yes Pain Scale: 0-10 Numeric Is Patient Pain Free? Yes Yes - Nurse 3 - General Ulcer D/C NN Start: 11/03/20 14:00 Freq: Status: Active Protocol: Activity Type Activity Date Activity User E-Sign Co-Sign Detail Recorded Client Recorded Date Recorded By Document 11/03/20 15:00 RB [id number] 11/03/20 15:00 RB Document 11/10/20 14:04 BM [id number] 11/10/20 14:04 [facility] Document 11/17/20 15:16 [facility] [id number] 11/17/20 15:18 [facility] 11/03/20 11/10/20 11/17/20 15:00 14:04 15:16 Wound Care Nurse 3 #1- R MEDIAL FOOT -Ulcer Cleansing Wound Cleanser Rinsed/ Rinsed/ Irrigated with Irrigated with Saline Saline -Foul Odor after Cleansing No No -Primary Dressing Applied Aquacel AG 4x4 Aquacel AG 2x2 Other -Other Dressing moist to dry saline -Primary Dressing Covered/Secured with Dry Gauze,Dry Dry Gauze & Dry Gauze & Gauze & Roll Roll Gauze, Roll Gauze, Gauze,Secured Secured with Secured with with Tape Tape Tape -Aquacel AG 4x4 1 -Aquacel AG 2x2 1 Treatment Response Procedure Procedure Procedure Tolerated Well Tolerated Well Tolerated Well Vital Signs Blood Pressure (90/60-120/80) 143/78 H Blood Pressure Mean (mm Hg) 99 Source Monitor Position Semi-Fowlers Blood Pressure Location Left Arm Pain Scale: 0-10 Numeric Is Patient Pain Free? Yes Yes Yes WC - Visit Discharge Discharge Condition Stable Stable Stable Ambulatory Status Ambulatory,Cane Ambulatory Ambulatory,Cane Transportation Private Auto Private Auto Private Auto Accompanied by dodie stoll Medication Reconcilliation completed & No provided to patient/care provider Clinical Summary of Care Provided Yes Facility Type Home Health Home Health Wound debrided: medial forefoot Laterality: Right Wound Grade/Stage: grade 3 Type of Debridement: Excisional debridement Anesthesia Used: 5% Lidocaine Gel Depth: in the subcutaneous layer Percentage of wound debrided: 100 Instrument Used: #15 blade Tissue Removed: fibrous, devitalized subcutaneous, biofilm, slough Severity: Fat Layer Exposed Amount of bleeding with debridement: Mild Bleeding Controlled with: Pressure Patient tolerated procedure well Assessment/Plan Active Problems 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 Diabetes with neuropathy. Peripheral vascular disease with prior intervention noted. Strong smoking habits. Peripheral vascular disease concern. Malnutrition suspected Plan: I reviewed and discussed his case. Debridement was performed as noted in the clinical panel. To change daily now with dakin wet to dry dressing at tunneling site at the 6 oclock location. He defers application of advanced wound healing product. His prior microbiology report from [facility] at the time of his surgery was reviewed and this demonstrates Group D enterococcus, gram-negative rods and gram positive rods. He has completed antibiotics and no longer has local or systemic signs of illness. His most recent noninvasive vascular studies demonstrated monophasic waveforms at the ankle level to the right lower extremity. He is already previously known to vascular specialist, Dr. Wong and I recommended referral to follow-up given his delayed healing, ulcer, continued smoking, and his history of peripheral vascular disease. He has a CT procedure performed this past Sunday and will follow up with Dr. Wong next Sunday to review the results and discuss his treatment plan. His foot xray was reviewed. This did not demonstrate any fractures, dislocations, osseous destruction, soft tissue emphysema or foreign body. There is diminished bone density noted in the first metatarsal head and also adjacent rays. Three nonweightbearing foot x-rays were reviewed. He understands he may require MRI evaluation also if lack of progress is noted or if infection signs develop. The patient was reassured local signs of infection have remained resolved to the foot today. It is noted he completed a course of antibiotics under the management of Dr. Kenyon. I also recommend updated labs to monitor his continued medical status and infection markers. His labs are reviewed with white blood cell count of 5.1, ESR 14, C-reactive protein 17.5. His hemoglobin A1c is also noted at 8.3% which she was advised to follow-up with his primary care physician for diabetes diagnosis and management. He was started on Metformin. To continue offloading with surgical shoe. He has an offloading felt pad applied to the strap and additional dual density Plastizote liners were also applied to take pressure off of the forefoot. To heel weight-bear and to reduce walking activity. To optimize nutrition with Jordan supplementations. A prescription was provided previously. To clean ulcer daily with soap and water prior to daily dressing changes. To discontinue smoking. This is imperative for healing opportunities. I answered all his questions. He will return to clinic in 1 week or call sooner if he has any questions or concerns. Note: [employer] speech recognition center rep software was used to create portions of this document. Sound-alike and misspelled words, as well as other center rep errors may be contained in the documentation.
[2020-11-24 08:48] VITALS: BP 166/76; PULSE 87; RESP 20; TEMP 36.4; BMI 29.3
--- NOTE | 2020-11-24 09:21 | PN.PCM_ITS ---
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 Status: Chronic Code(s): L97.513 - Non-pressure chronic ulcer of other part of right foot with necrosis of muscle (2) Tobacco abuse Status: Chronic Code(s): Z72.0 - Tobacco use (3) Hallux valgus (acquired), right foot Status: Chronic Code(s): M20.11 - Hallux valgus (acquired), right foot (4) Type 2 diabetes mellitus with diabetic polyneuropathy Status: Chronic Code(s): E11.42 - Type 2 diabetes mellitus with diabetic polyneuropathy (5) Malnutrition Status: Chronic Code(s): E46 - Unspecified protein-calorie malnutrition (6) Other specified peripheral vascular diseases Status: Chronic Code(s): I73.89 - Other specified peripheral vascular diseases (7) Cellulitis of right lower limb Status: Resolved Code(s): L03.115 - Cellulitis of right lower limb Type of Wound Date of Service: 11/24/20 Chief Complaint: Right foot ulcer History of Wound: This 65-year-old male was seen in the clinic with his family member for a wound on his right foot that 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 He denies odor and relates there is no redness. He has a vascular intervention plan with Dr. Wong. He is wearing a surgical shoe. He reduce smoking to about nearly 1 pack/day this past week. He has been changing the dressing with Dakin wet-to-dry as advised with the assistance of home health which will not only be able to come out every other day. He continues on Metformin for his recently diagnosed diabetes status. Progress of Wound: Improving - Physical Exam Vital Signs Temp Pulse Resp BP 97.6 F L 87 20 H 166/76 H 11/24/20 08:48 11/24/20 08:48 11/24/20 08:48 11/24/20 08:48 General: Alert, Oriented x3, Cooperative, No apparent distress Extremities: No cyanosis, No edema, Capillary Refill Less than 3 Seconds, No Calf Tenderness, Diminished Peripheral Pulses Skin: Ulcer/ Wound - No purulence, erythema, streaking, odor, infection. No probe to bone. There is no longer exposed capsule. There is still a deeper probing area at the 6 o'clock position that has reduced depth. Adjacent skin is hairless and atrophic Wound Measurements and Assessment - Nurse 1 - General Ulcer Measurement Start: 11/03/20 14:00 Freq: Status: Active Protocol: Activity Type Activity Date Activity User E-Sign Co-Sign Detail Recorded Client Recorded Date Recorded By Document 11/24/20 08:48 LAKE [id number] 11/24/20 08:50 DL 11/24/20 08:48 Wound Center Nurse 1 [Ulcer Assessment] #1- R MEDIAL FOOT -Current Size (cm) - Length 2.4 -Current Size (cm) - Width 2.3 -Current Size (cm) - Depth 0.3 -Total Square Cm 5.52 -Photo Taken No -Tunneling Position (O'clock) 7 -Tunneling Distance (cm) 0.4 -Exudate Amt Medium -Exudate Type Serosanguineous -Wound Margin Thickened -Granulation Amt Medium (34-66%) -Granulation Quality Hyper- granulation,Red -Necrosis Amt Medium (34-66%) -Necrotic Tissue Type Adherent Slough -Structure Exposed N/A -Texture (Bety-wound Skin Appearance) Callus,Scarring -Moisture (Bety-wound Skin Appearance Dry/Scaly ) -Color (Bety-wound Skin Appearance) Rubor -Temperature (Bety-wound Skin No Abnormality Appearance) (Pt Warm) -Tenderness on Palpation (Bety-wound No Skin Appearance) -Ulcer Cleansing Wound Cleanser -Foul Odor after Cleansing No -Anesthetic Used 4% Lidocaine Solution WC - Nurse 2 - General Ulcer CM Notes Start: 11/03/20 14:00 Freq: Status: Active Protocol: Activity Type Activity Date Activity User E-Sign Co-Sign Detail Recorded Client Recorded Date Recorded By Document 11/24/20 08:56 CESAR [id number] 11/24/20 09:01 CESAR 11/24/20 08:56 Wound Center Nurse 2 [Procedure/Treatment] -Time 08:56 -Correct Patient Yes -Correct Side, Site, Position Yes -Correct Procedure Yes -Procedure Performed Yes -Type of Procedure Debridement -Clinical Debridement Subcutaneous -Tissue Removed Subcutaneous -Post Debridement (cm) - Length 2.4 -Post Debridement (cm) - Width 2 -Post Debridement (cm) - Depth 0.7 -Total Square (Post) (cm) 4.8 -Area of Debridement (cm) - Length 2.4 -Area of Debridement (cm) - Width 2 -Total Square (Area) (cm) 4.8 -Tunneling No -Undermining/Tunneling No -Circular Undermining No -Wound/Ulcer Outcome Not Healed -Ulcer Cleansing Rinsed/ Irrigated with Saline -Foul Odor after Cleansing No -Bioengineered Tissue No -Bleeding Controlled with Pressure -Offloading Yes -Type of Offloading Surgical Shoe -Treatment Response Procedure Tolerated Well -Debridement - Subq, 1st 20sq cm Yes [See Physician Procedure note for Specifics] Pain Scale: 0-10 Numeric [Pain] -Is Patient Pain Free? Yes - Nurse 3 - General Ulcer D/C NN Start: 11/03/20 14:00 Freq: Status: Active Protocol: Activity Type Activity Date Activity User E-Sign Co-Sign Detail Recorded Client Recorded Date Recorded By Document 11/24/20 09:11 DL [id number] 11/24/20 09:14 DL 11/24/20 09:11 Wound Care Nurse 3 [Wound Dressing] #1- R MEDIAL FOOT -Ulcer Cleansing Wound Cleanser -Foul Odor after Cleansing No -Other Dressing wet to dry today -Primary Dressing Covered/Secured Dry Gauze & with Roll Gauze, Secured with Tape [Post Procedure Tolerated] -Treatment Response Procedure Tolerated Well Pain Scale: 0-10 Numeric [Pain] -Is Patient Pain Free? Yes - Visit Discharge [Visit Discharge Information] -Discharge Condition Stable -Ambulatory Status Ambulatory -Transportation Private Auto -Notes: Pt to resume Dakins at home. Musculoskeletal: No Tenderness to Palpation of Joints or Extremities, Muscle W asting Neurological: - - Lack of normal epicritic sensation light touch is consistent with neuropathic status Psych/Mental Status: Normal Affect, Appropriate Debridement Note Post-Debridement Measurements/Treatment - Nurse 2 - General Ulcer CM Notes Start: 11/03/20 14:00 Freq: Status: Active Protocol: Activity Type Activity Date Activity User E-Sign Co-Sign Detail Recorded Client Recorded Date Recorded By Document 11/03/20 14:34 JF [id number] 11/03/20 14:39 JF Document 11/10/20 13:48 JF [id number] 11/10/20 13:51 JF Document 11/17/20 17:07 PL [id number] 11/17/20 17:09 PL Document 11/24/20 08:56 JF [id number] 11/24/20 09:01 JF 11/03/20 11/10/20 11/17/20 14:34 13:48 17:07 Wound Center Nurse 2 #1- R MEDIAL FOOT -Time 14:34 13:49 14:55 -Correct Patient Yes Yes Yes -Correct Side, Site, Position Yes Yes Yes -Correct Procedure Yes Yes Yes -Procedure Performed Yes Yes Yes -Type of Procedure Debridement Debridement Debridement -Clinical Debridement Subcutaneous Subcutaneous Subcutaneous -Tissue Removed Subcutaneous Subcutaneous Subcutaneous -Post Debridement (cm) - Length 3.6 2.5 2.3 -Post Debridement (cm) - Width 3.0 3.7 3.4 -Post Debridement (cm) - Depth 0.7 0.2 0.3 -Total Square (Post) (cm) 10.80 9.25 7.82 -Area of Debridement (cm) - Length 3.6 2.5 2.3 -Area of Debridement (cm) - Width 3.0 3.7 3.4 -Total Square (Area) (cm) 10.80 9.25 7.82 -Tunneling No Yes No -Tunneling Position (O'clock) 6 -Tunneling Distance (cm) 2.2 -Undermining/Tunneling No No No -Circular Undermining No No No -Wound/Ulcer Outcome Not Healed Not Healed Not Healed -Ulcer Cleansing Rinsed/ Rinsed/ Rinsed/ Irrigated with Irrigated with Irrigated with Saline Saline Saline -Foul Odor after Cleansing No No No -Bioengineered Tissue No No No -Bleeding Controlled with Pressure Pressure -Offloading Yes Yes -Type of Offloading Surgical Shoe Surgical Shoe -Treatment Response Procedure Procedure Tolerated Well Tolerated Well -Debridement - Subq, 1st 20sq cm Yes Yes Yes Pain Scale: 0-10 Numeric Is Patient Pain Free? Yes Yes Yes 11/24/20 08:56 Wound Center Nurse 2 #1- R MEDIAL FOOT -Time 08:56 -Correct Patient Yes -Correct Side, Site, Position Yes -Correct Procedure Yes -Procedure Performed Yes -Type of Procedure Debridement -Clinical Debridement Subcutaneous -Tissue Removed Subcutaneous -Post Debridement (cm) - Length 2.4 -Post Debridement (cm) - Width 2 -Post Debridement (cm) - Depth 0.7 -Total Square (Post) (cm) 4.8 -Area of Debridement (cm) - Length 2.4 -Area of Debridement (cm) - Width 2 -Total Square (Area) (cm) 4.8 -Tunneling No -Tunneling Position (O'clock) -Tunneling Distance (cm) -Undermining/Tunneling No -Circular Undermining No -Wound/Ulcer Outcome Not Healed -Ulcer Cleansing Rinsed/ Irrigated with Saline -Foul Odor after Cleansing No -Bioengineered Tissue No -Bleeding Controlled with Pressure -Offloading Yes -Type of Offloading Surgical Shoe -Treatment Response Procedure Tolerated Well -Debridement - Subq, 1st 20sq cm Yes Pain Scale: 0-10 Numeric Is Patient Pain Free? Yes - Nurse 3 - General Ulcer D/C NN Start: 11/03/20 14:00 Freq: Status: Active Protocol: Activity Type Activity Date Activity User E-Sign Co-Sign Detail Recorded Client Recorded Date Recorded By Document 11/03/20 15:00 RB [id number] 11/03/20 15:00 RB Document 11/10/20 14:04 BMF [id number] 11/10/20 14:04 BM Document 11/17/20 15:16 BMF [id number] 11/17/20 15:18 BMF Document 11/24/20 09:11 DL [id number] 11/24/20 09:14 DL 11/03/20 11/10/20 11/17/20 15:00 14:04 15:16 Wound Care Nurse 3 #1- R MEDIAL FOOT -Ulcer Cleansing Wound Cleanser Rinsed/ Rinsed/ Irrigated with Irrigated with Saline Saline -Foul Odor after Cleansing No No -Primary Dressing Applied Aquacel AG 4x4 Aquacel AG 2x2 Other -Other Dressing moist to dry saline -Primary Dressing Covered/Secured with Dry Gauze,Dry Dry Gauze & Dry Gauze & Gauze & Roll Roll Gauze, Roll Gauze, Gauze,Secured Secured with Secured with with Tape Tape Tape -Aquacel AG 4x4 1 -Aquacel AG 2x2 1 Treatment Response Procedure Procedure Procedure Tolerated Well Tolerated Well Tolerated Well Vital Signs Blood Pressure (90/60-120/80) 143/78 H Blood Pressure Mean (mm Hg) 99 Source Monitor Position Semi-Fowlers Blood Pressure Location Left Arm Pain Scale: 0-10 Numeric Is Patient Pain Free? Yes Yes Yes WC - Visit Discharge Discharge Condition Stable Stable Stable Ambulatory Status Ambulatory,Cane Ambulatory Ambulatory,Cane Transportation Private Auto Private Auto Private Auto Accompanied by nijeana stoll Medication Reconcilliation completed & No provided to patient/care provider Clinical Summary of Care Provided Yes Notes: Facility Type Home Health Home Health 11/24/20 09:11 Wound Care Nurse 3 #1- R MEDIAL FOOT -Ulcer Cleansing Wound Cleanser -Foul Odor after Cleansing No -Primary Dressing Applied -Other Dressing wet to dry today -Primary Dressing Covered/Secured with Dry Gauze & Roll Gauze, Secured with Tape -Aquacel AG 4x4 -Aquacel AG 2x2 Treatment Response Procedure Tolerated Well Vital Signs Blood Pressure (90/60-120/80) Blood Pressure Mean (mm Hg) Source Position Blood Pressure Location Pain Scale: 0-10 Numeric Is Patient Pain Free? Yes WC - Visit Discharge Discharge Condition Stable Ambulatory Status Ambulatory Transportation Private Auto Accompanied by Medication Reconcilliation completed & provided to patient/care provider Clinical Summary of Care Provided Notes: Pt to resume Dakins at home. 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 Diabetes with neuropathy. Peripheral vascular disease with prior intervention noted. Strong smoking habits. Peripheral vascular disease concern. Malnutrition suspected Plan: I reviewed and discussed his case. Debridement was performed as noted in the clinical panel. To change daily now with dakin wet to dry dressing at tunneling site at the 6 oclock location. He defers application of advanced wound healing product. His prior microbiology report from [facility] at the time of his surgery was reviewed and this demonstrates Group D enterococcus, gram-negative rods and gram positive rods. He has completed antibiotics and no longer has local or systemic signs of illness. His most recent noninvasive vascular studies demonstrated monophasic waveforms at the ankle level to the right lower extremity. He is already previously known to vascular specialist, Dr. Wong and I recommended referral to follow-up given his delayed healing, ulcer, continued smoking, and his history of peripheral vascular disease. He had updated CT procedure performed and has intervention from a surgical standpoint scheduled with Dr. Wong. His foot xray was reviewed. This did not demonstrate any fractures, dislocations, osseous destruction, soft tissue emphysema or foreign body. There is diminished bone density noted in the first metatarsal head and also adjacent rays. Three nonweightbearing foot x-rays were reviewed. He understands he may require MRI evaluation also if lack of progress is noted or if infection signs develop. The patient was reassured local signs of infection have remained resolved to the foot today. It is noted he completed a course of antibiotics under the management of Dr. Kenyon. I also recommend updated labs to monitor his continued medical status and infection markers. His labs are reviewed with white blood cell count of 5.1, ESR 14, C-reactive protein 17.5. His hemoglobin A1c is also noted at 8.3% which she was advised to follow- up with his primary care physician for diabetes diagnosis and management. He was started on Metformin. To continue offloading with surgical shoe. He has an offloading felt pad applied to the strap and additional dual density Plastizote liners were also applied to take pressure off of the forefoot. To heel weight- bear and to reduce walking activity. To optimize nutrition with Jordan supplementations. A prescription was provided previously. To clean ulcer daily with soap and water prior to daily dressing changes. To discontinue smoking. This is imperative for healing opportunities. I answered all his questions. He will return to clinic in 1 week or call sooner if he has any questions or concerns. Note: [employer] speech recognition building manager software was used to create portions of this document. Sound-alike and misspelled words, as well as other building manager errors may be contained in the documentation.
== END 2020-11-28 23:59 ==
LOC: WC 08:30
PROVIDERS: PCP Preventive Medicine Occupational Medicine; Referring Provider Podiatrist Foot & Ankle Surgery; Visit Provider Nurse Practitioner
DX: E11.621 Type 2 diabetes mellitus with foot ulcer (principal); L97.513 Non-pressure chronic ulcer of other part of right foot with necrosis of muscle; E11.51 Type 2 diabetes mellitus with diabetic peripheral angiopathy without gangrene; E11.42 Type 2 diabetes mellitus with diabetic polyneuropathy; M20.11 Hallux valgus (acquired), right foot; F17.210 Nicotine dependence, cigarettes, uncomplicated; Z79.84 Long term (current) use of oral hypoglycemic drugs; Z79.82 Long term (current) use of aspirin
CPT/HCPCS: 11042

== ENCOUNTER 2020-12-14 09:00 | Day surgery (SDC) | payer OTHER, SELFPAY ==
[2020-12-10 13:25] VITALS: BMI 29.7
[2020-12-14 09:14] LABS: Hematocrit 54.1 % (40-54); Hemoglobin 17.7 g/dL (13.0-16.5); Mean Corp Hgb Conc 32.7 g/dL (32-36); Mean Corpuscular Hgb 31.8 pg (27.0-32.0); Mean Corpuscular Volume 97.1 fL (80-94); Mean Platelet Vol. 9.4 fl (6.2-12.0); Platelet Count 273 K/mm3 (150-450); RBC Distribution Width CV 13.8 % (11.6-14.6); RBC Distribution Width SD 50.3 fl (35.1-43.9); Red Blood Count 5.57 M/mm3 (4.6-6.2); White Blood Count 9.3 K/mm3 (4.4-11.0)
[2020-12-14 09:31] LABS: Albumin, Serum 3.6 g/dL (3.2-5.0); BUN 15 mg/dL (7-18); BUN/Creat Ratio 17.8 RATIO (10-20); Calcium,Total 9.2 mg/dL (8.5-10.1); Chloride 107 mmol/L (98-107); Creatinine, Serum 0.84 mg/dL (0.70-1.30); EST Glomerular Filtration Rate 98 mL/min (>60); Est Glom Filt Rate - Afr Amer 118 mL/min (>60); Estimated Creatinine Clearance 106.18 ml/min; Glucose 174 mg/dL (74-106); Phosphorus 3.5 mg/dL (2.5-4.9); Potassium 4.2 mmol/L (3.5-5.1); Sodium Level 140 mmol/L (136-145)
--- NOTE | 2020-12-14 12:26 | PCM.OPRPT ---
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 Ultrasound access retrograde left common femoral artery. 2. Right lower extremity angiogram with catheter placed into the anterior tibial artery. 3. Balloon angioplasty from the anterior tibial artery through the popliteal with a 4 mm balloon. 4. Balloon angioplasty through the popliteal stent to the proximal popliteal with a 5 x 200 balloon. 5. Closure with Star close Type of Anesthesia:: Sedation,Conscious Description of Procedure: Patient brought to the [employer]. Underwent appropriate timeout consent. Underwent sedation. Was prepped and draped in a sterile fashion. We did ultrasound-guided cyst retrograde left common femoral artery. Put a Glidewire up and then 5 Palestinian sheath. Get 5000 units of heparin. Of note after 45 minutes gave an additional 2000 units. We got up and over the bifurcation and imaged from the right external iliac artery. This showed the iliac, common femoral, the profunda, and the femoral artery were all widely patent. We then imaged distally and it showed the proximal popliteal was patent with 2 large collaterals filling. Mid popliteal through the popliteal stent was occluded throughout. There was a large collateral filling into the anterior tibial artery which was runoff down the foot. We brought in a long 6 Palestinian sheath. Using different wires and catheters we eventually got through the area the occlusion and through the stent. We then got through the distal Occlusion and into the anterior tibial artery. We confirmed good position and there. We then replaced the 035 wire. We ballooned from the anterior tibial artery through the popliteal with a 4 x 100 balloon for over 3 minutes. We then balloon from distal to the stent to proximal to the stent with a 5 mm balloon. We then extended this up into the area the adductor with a 5 x 200 balloon again for over 2 minutes. There is some sluggish flow still going through here appear to be more sluggish distally. We replaced the 4 balloon and balloon that for 2 minutes. There is now some antegrade flow going still some chronic changes through the stent in the distal part of the stent. But this was filling faster than the collaterals. We removed out the sheath deployed a Star close with good hemostasis. We will plan on getting him on Plavix and Xarelto and see if this reopens further on its own. Plan: If this does not improve the wound healing we could try to go antegrade and get a little bit better flow through this. If not consider doing a femoral to anterior tibial artery bypass. Sedation: This 65-year-old gentleman underwent moderate sedation given by Dr. Raul Wong. He was monitored EKG blood pressure and pulse ox for over the 30 minutes of the procedure. See the EMR for the complete record
[2020-12-14] MEDS: Rivaroxaban 20 MG Tablet PO (14:10)
[2020-12-14 15:35] VITALS: BP 152/78; PULSE 75; RESP 18; O2SAT 97
[2020-12-14 16:35] VITALS: BP 152/70; PULSE 68; RESP 18; O2SAT 96
[2020-12-14 17:35] VITALS: BP 148/73; PULSE 73; RESP 18; O2SAT 96
[2020-12-14 18:35] VITALS: BP 149/81; PULSE 65; RESP 18; O2SAT 97
--- NOTE | 2020-12-14 18:43 | NURSING ---
bedrest complete. ambulated with patient in hallway. tolerated well. dressing c/d/i. no hematoma noted
== END 2020-12-14 18:47 | disposition home or self-care (01) ==
LOC: CLSP 09:02 → PCU 15:49
PROVIDERS: PCP Preventive Medicine Occupational Medicine; Referring Provider Surgery Vascular Surgery; Visit Provider Surgery Vascular Surgery
DX: T82.858A Stenosis of other vascular prosthetic devices, implants and grafts, initial encounter (principal); I70.235 Atherosclerosis of native arteries of right leg with ulceration of other part of foot; L97.513 Non-pressure chronic ulcer of other part of right foot with necrosis of muscle; I70.213 Atherosclerosis of native arteries of extremities with intermittent claudication, bilateral legs; M19.90 Unspecified osteoarthritis, unspecified site; Z79.02 Long term (current) use of antithrombotics/antiplatelets; F17.200 Nicotine dependence, unspecified, uncomplicated
CPT/HCPCS: 36245; 36415; 37224; 75710; 76937; 80069; 85027; 93005; 99152; 99153; C1769; J7040; Q9967; C1725; C1760; C1887; C1894

== ENCOUNTER → 2021-04-21 09:57 | Outpatient (CLI) | payer OTHER, SELFPAY ==
[2020-12-10 13:25] VITALS: BMI 29.7
--- NOTE | 2021-04-21 09:59 | ADUL_ITS ---
Reason For Study: Stricture of artery, Atherosclerosis Right Velocities Ext. Iliac Artery, dist = 91.6 cm./sec. Common Femoral Artery, mid = 63.4 cm./sec. Supf Femoral Artery, prox = 29.3 cm./sec. SFA mid, prox to occlusion, 20 cm/sec. SFA mid, No flow. SFA distal, No flow. Popliteal artery, prox-distal, No flow. Stent noted distal SFA- distal Katie. Profunda Femoral Artery = 105.2 cm./sec. H[employer]EL [employer] MANAGER throughout, No flow. PeroA throughout, No flow. Ant. Tibial Artery, prox = 33.6 cm./sec. Ant. Tibial Artery, mid = 23 cm./sec. Ant. Tibial Artery, dist = 21.5 cm./sec. H[employer] MANAGER at ankle, No flow DPA, 20.5 cm/sec. /US Art Duplex Unilat Lower Ext Interpretation Summary Right femoral artery and femoral to popliteal stent occluded. Ordering Physician: Raul Wong Referring Physician: Paras Beard Performed By: Ashley Mcpherson RVT and Student
== END ==
PROVIDERS: PCP Preventive Medicine Occupational Medicine; Referring Provider Surgery Vascular Surgery; Visit Provider Surgery Vascular Surgery
DX: I70.213 Atherosclerosis of native arteries of extremities with intermittent claudication, bilateral legs (principal); I77.1 Stricture of artery; I99.8 Other disorder of circulatory system; F17.200 Nicotine dependence, unspecified, uncomplicated; M19.90 Unspecified osteoarthritis, unspecified site; M70.88 Other soft tissue disorders related to use, overuse and pressure other site; M79.609 Pain in unspecified limb
CPT/HCPCS: 93922; 93926